=== PATIENT | male | born 1945 | race Caucasian/White ===

== ENCOUNTER 2021-05-02 10:07 | Emergency (ER) | payer MEDICARE, BC, SELFPAY ==
[2021-05-02 10:20] VITALS: BP 123/69; PULSE 53; RESP 16; TEMP 36.4; O2SAT 99
[2021-05-02 10:22] VITALS: BP 123/69; PULSE 53; RESP 16; TEMP 36.4; O2SAT 99
--- NOTE | 2021-05-02 10:39 | ED.WOUNDLAC ---
HPI - Wound/Laceration General Chief Complaint: Wound/Laceration Stated Complaint: lt hand middle finger laceration Time Seen by Provider: 05/02/21 10:23 Source: patient and RN notes reviewed Mode of arrival: ambulatory Limitations: no limitations History of Present Illness HPI narrative: Patient presents today complaining of a laceration to his left 3rd finger that was sustained yesterday by a pocket knife. He seeks treatment today because he cannot get the laceration to stop bleeding. He has tried pressure, pressure dressings, and hemostatic powder without relief. Denies numbness or tingling. Currently rates his pain 06/28. Patient takes Plavix and aspirin. Related Data Home Medications Medication Instructions Recorded Confirmed clopidogrel 75 mg tablet 75 mg PO DAILY 03/29/19 01/08/21 isosorbide mononitrate 30 mg 30 mg PO DAILY 03/29/19 01/08/21 tablet,extended release 24 hr amlodipine 2.5 mg tablet 2.5 mg PO DAILY 07/27/20 01/08/21 aspirin 81 mg tablet,delayed 81 mg PO DAILY 07/27/20 01/08/21 release atenolol 25 mg tablet 25 mg PO DAILY 07/27/20 01/08/21 atorvastatin 20 mg tablet 20 mg PO DAILY 07/27/20 01/08/21 Allergies Allergy/AdvReac Type Severity Reaction Status Date / Time iodine Allergy Unknown Skin Verified 01/08/21 11:03 Reaction latex Allergy Unknown UNKNOWN Verified 01/08/21 11:03 TAPE Allergy Mild RED RASH Uncoded 01/08/21 11:03 Contrast Media Allergy Unknown RASH Uncoded 01/08/21 11:03 Review of Systems Review of Systems: CONSTITUTIONAL: Denies body aches, fever, chills, or sweats. EYES: Denies visual changes, redness, or discharge. ENT: Denies rhinorrhea, congestion, sore throat, or otalgia. CARDIOVASCULAR: Denies chest pain, palpitations, or edema. RESPIRATORY: Denies cough or dyspnea. GASTROINTESTINAL: Denies abdominal pain, nausea, vomiting, or diarrhea. GENITOURINARY: Denies dysuria or hematuria. SKIN: Denies rash, itching. + Laceration to left 3rd finger MUSCULOSKELETAL: Denies back pain, joint pain, or myalgia. NEUROLOGIC: Denies headache, numbness, tingling, or weakness. PSYCH: Denies depression or anxiety. [facility] Past Medical History Medical History Atherosclerotic heart disease of [place] coronary artery with other forms of angina pectoris Se Dr Shahid Figueroa at [facility] 3-20 cardiac cath arteries ok Essential (primary) hypertension Obstructive sleep apnea (adult) (pediatric) Surgical History Surgical History H/O endovascular stent graft for abdominal aortic aneurysm 3-21 History of carotid endarterectomy 2-21 History of hip replacement History of quadruple bypass Hx of arthroscopy of knee Status post double vessel coronary artery bypass Family History Family History Father Family history of Parkinson's disease Other Family history of cardiovascular disease Social History Social History Alcohol intake: current Comments At time of signature, I have reviewed and agree with nursing past medical, surgical, social and family history unless otherwise noted. Please see nursing chart for further information. There is no relevant family history pertinent to the presenting complaint Exam Narrative: GENERAL: Well-appearing, well-nourished, and in no acute distress. HEAD: Normocephalic, atraumatic. EYES: EOMI. No redness or drainage. Conjunctivae normal. ENT: Mucous membranes pink and moist. NECK: Normal AROM. CHEST: No respiratory distress. EXTREMITIES: Normal range of motion. No edema. SKIN: Warm, dry, no rash. Capillary refill normal. Normal skin turgor. Approximately 2 cm partial-thickness linear laceration to the dorsum of the left 3rd PIP. Pressure dressing removed. No active bleeding present. Distal sensation intact. Capill
== END 2021-05-02 10:50 | disposition home or self-care (01) ==
PROVIDERS: Emergency Provider Nurse Practitioner; PCP Family Medicine
DX: S61.213A Laceration without foreign body of left middle finger without damage to nail, initial encounter (principal); I25.10 Atherosclerotic heart disease of native coronary artery without angina pectoris; I10 Essential (primary) hypertension; Z79.01 Long term (current) use of anticoagulants; Z79.82 Long term (current) use of aspirin; W26.0XXA Contact with knife, initial encounter
CPT/HCPCS: 29130; 99212; G0463

== ENCOUNTER 2021-07-09 10:47 | Outpatient (CLI) | payer MEDICARE, BC, SELFPAY ==
--- NOTE | ~2021-07-09 | XR_ITS ---
XR knee RT min 4V 07/09/2021 11:24 Indication: Right knee pain, chronic Procedure: 4 views right knee Comparison: No prior studies for comparison. Findings: There is severe tricompartment osteoarthritis of the right knee with remodeling of the late ral tibial plateau. No acute fracture or traumatic malalignment. No significant joint effusion. There are extensive vascular calcifications. Impression: 1: Severe tricompartment osteoarthritis of the right knee. Reviewed, dictated and finalized at location B. GAGE LOAN ORIGINATOR Impression: 1: Severe tricompartment osteoarthritis of the right knee.
--- NOTE | ~2021-07-09 | XR_ITS ---
XR shoulder RT min 2V 07/09/2021 11:24 Indication: Right shoulder pain Procedure: 5 views right shoulder Comparison: No prior studies for comparison. Findings: There is mild polyarticular osteoarthritis of the right shoulder. No fracture, subluxation or dislocation. Surrounding osseous structures and soft tissues are unremarkable. There are median st ernotomy wires. Impression: 1: Mild polyarticular osteoarthritis. Reviewed, dictated and finalized at location B. STERED PUBLIC SURVEYOR Impression: 1: Mild polyarticular osteoarthritis.
== END 2021-07-09 10:48 | disposition home or self-care (01) ==
LOC: ANHIMG 10:56
PROVIDERS: PCP Family Medicine; Visit Provider Family Medicine
DX: M17.11 Unilateral primary osteoarthritis, right knee (principal)
CPT/HCPCS: 73030; 73564

== ENCOUNTER → 2022-01-26 09:45 | Outpatient (CLI) | payer MEDICARE, BC, SELFPAY ==
--- NOTE | ~2022-01-26 | MR_ITS ---
EXAMINATION: MR shoulder RT wo con DATE: 01/26/2022 11:03 INDICATION: Anterolateral right shoulder pain TECHNIQUE: Magnetic resonance imaging (MRI) of the right shoulder was performed without intravenous c ontrast. Sequences included axial PD-weighted FS FSE, coronal oblique PD-weighted FS FSE, coronal obl ique T2-weighted FS FSE, sagittal PD-weighted FS FSE, and sagittal T1-weighted SE. COMPARISON: None. FINDINGS: Coracoacromial arch: The acromion undersurface is curved in morphology (type II). The coracoacromial ligament is normal. M oderate acromioclavicular osteoarthritis. Rotator cuff: Moderate supraspinatus and infraspinatus tendinopathy. There is a tear extending 3 cm AP along the moreno perior and middle facet footplates of the tendons. The anterior two thirds of the tendon along the moreno perior facet footplate of the supraspinatus tendon appears full-thickness with small portion of the a rticular side of the infraspinatus tendon remaining intact at the posterior third of the tear. The moreno praspinatus tear margin is retracted approximately 2 cm medially to the level of the lateral margin o f the acromion. There is attenuation of the lateral 2 cm the medially retracted supraspinatus tear ma rgin with greater degree of retraction of the articular side of the tendon. Mild subscapularis tendin opathy with complete tear of the cephalad two thirds of the lesser tuberosity footplate. The more cau alhaji muscular attachment of the subscapularis as well as the bursal side of the tendon remains intact and contiguous with the transverse humeral ligament. The teres minor tendon is normal. There is assoc iated atrophy of the supraspinatus tendon with slight concavity to its cephalad margin at the level o f the supraspinatus fossa and with mild fatty infiltration of the subscapularis muscle belly. Biceps tendon, glenoid labrum and glenohumeral cartilage: Complete tear of the long head biceps tendon with retraction of the attenuated and frayed distal tear margin to below the level of the intertubercular groove. There is a small slip of the tendon remaini ng at the intertubercular groove which does not appear to extend to the glenoid anchor likely represe nts an accessory head with insertion along the joint capsule. There is a tear of the superior to post erior superior glenoid labrum as well as of the inferior to posterior inferior labrum. Small marginal osteophytes along the posterior rim of the glenoid replacing portions of the posterior labrum. Mild partial-thickness cartilage loss with smooth chondral surface along the apical and inferomedial aspec t of the humeral head. Fluid: Small glenohumeral joint effusion with proportional extension of fluid into the long head biceps tend on sheath as well as communicating through the full-thickness rotator cuff tear with a small amount o f fluid in the subacromial subdeltoid bursa. No loose osteochondral bodies. Bones: Normal marrow signal with no edema, fracture or abnormal marrow replacing process. IMPRESSION: 1. Large rotator cuff tear involving the cephalad two thirds of the lesser tuberosity footplate of th e subscapularis tendon, the full-thickness of the superior facet footplate of the supraspinatus tendo n and approximately two thirds thickness of the articular side of the anterior half of the infraspina tus tendon. 2. Glenohumeral osteoarthritis with tears of the superior to posterosuperior and inferior to posterio r inferior labrum. 3. Full-thickness tear and distal retraction of the long head biceps tendon with likely residual smal l intact accessory head which is not seen extending to the glenoid anchor likely splinting with the c apsule at the cephalad aspect of the intertubercular groove. Reviewed, dictated and finalized at location A. Electronically signed by Sincere Tee M.D. on
== END ==
PROVIDERS: PCP Emergency Medicine; Visit Provider Orthopaedic Surgery
DX: M19.011 Primary osteoarthritis, right shoulder (principal); S46.111A Strain of muscle, fascia and tendon of long head of biceps, right arm, initial encounter; X58.XXXA Exposure to other specified factors, initial encounter
CPT/HCPCS: 73221

== ENCOUNTER → 2022-07-02 14:08 | Outpatient (CLI) | payer MEDICARE, BC, SELFPAY ==
--- NOTE | ~2022-07-02 | MR_ITS ---
EXAMINATION: MR knee LT wo con DATE: 07/02/2022 14:52 INDICATION: Quadriceps tear. Left knee pain. TECHNIQUE: Magnetic resonance imaging (MRI) of the left knee was performed without intravenous contra st. Sequences included axial PD-weighted FS FSE, coronal PD-weighted FSE and PD-weighted FS FSE, sagi ttal PD-weighted FSE, and sagittal T2-weighted FS FSE. COMPARISON: Left knee radiographs 06/27/2022 FINDINGS: Medial compartment: There is maceration of the medial meniscus. There is full-thickness cartilage loss of tibial condyle involving the medial articular surface with cortical remodeling. There is full-thickness cartilage lo ss of femoral condyle involving the medial articular surface with cortical remodeling. There are also areas of partial thickness cartilage loss of femoral condyle and tibial condyle. Osteophytes are not ed. Lateral compartment: There is an undersurface horizontal tear of anterior horn and body of lateral meniscus. There is deep partial-thickness cartilage loss of tibial condyle involving the posteromedial articular surface. Th ere is cartilage surface irregularity of femoral condyle. Osteophytes are noted. Patellofemoral compartment: There is shallow partial-thickness cartilage loss of patellar medial facet, median ridge, and lateral facet. There is shallow partial-thickness cartilage loss of medial, central, and lateral trochlea. O steophytes are noted. Ligaments and tendons: The anterior and posterior cruciate ligaments are normal. There are changes of prior sprains of media l collateral ligament and fibular collateral ligament characterized by thickening and increased signa l intensity proximally. There is mild patellar tendinopathy. There is a partial tear of quadriceps te ndon measuring 3.7 cm proximal to distal. Fluid: There is a moderate-sized knee joint effusion. There is a small Garcia's cyst. There is subcutaneous e isabelle about the knee. IMPRESSION: 1. Partial tear of quadriceps tendon measuring 3.7 cm proximal to distal. 2. Severe chondrosis of medial compartment, moderate chondrosis of lateral compartment, and mild kelvin drosis of patellofemoral compartment. 3. Tears of medial and lateral menisci. 4. Moderate-sized knee joint effusion. 5. Small Garcia's cyst. Reviewed, dictated and finalized at location A. SH REPAIRER IMPRESSION: 1. Partial tear of quadriceps tendon measuring 3.7 cm proximal to distal. 2. Severe chondrosis of medial compartment, moderate chondrosis of lateral comp artment, and mild chondrosis of patellofemoral compartment. 3. Tears of medial and lateral menisci. 4. Moderate-sized knee joint effusion. 5. Small Garcia's cyst.
== END ==
PROVIDERS: PCP Emergency Medicine; Visit Provider Orthopaedic Surgery
DX: S76.112A Strain of left quadriceps muscle, fascia and tendon, initial encounter (principal); M71.22 Synovial cyst of popliteal space [Baker], left knee; S83.282A Other tear of lateral meniscus, current injury, left knee, initial encounter; S83.242A Other tear of medial meniscus, current injury, left knee, initial encounter; X58.XXXA Exposure to other specified factors, initial encounter
CPT/HCPCS: 73721

== ENCOUNTER 2022-07-19 00:44 | Day surgery (SDC) | payer MEDICARE, BC, SELFPAY ==
--- NOTE | 2022-07-15 14:10 | PC.NURSE ---
Report to the Outpatient Waiting Room, entrance under the green pavilion located off [facility], at time _0600 on date __07/19/22 . Planned Procedure Time: ___0730 . Time changes happen often and if your time is changed the preop area will call you the afternoon before. - You and your visitor will be asked to self-screen and do not enter if you have any COVID symptoms. - Only one visitor is requested with a max of two and NO children visitors are allowed at this time. - The patient visitor may be requested to leave or wait in car when not with patient due to distancing restrictions. - A mask is optional within the hospital at this time. Patients may have clear liquids (water, carbonated beverages, clear teas, apple juice) until 3 hours prior to surgery with a maximum of 20 ounces. - No food from midnight until time of surgery - Infants may have breast milk until 4 hours before surgery, formula 6 hours prior to surgery. - Children will be allowed to drink immediately following surgery. If applicable, please bring a bottle or sippy cup to assist with drinking. Juice, water, soda, and popsicles are readily available. For infants on formula, please bring formula the day of surgery. Pacifiers are allowed. Take the following medications with a SIP of water the morning of surgery: ___ATENOLOL,ISOSORBIDE,LEVOTHYROXINE DO NOT STOP ANY OF YOUR OTHER PRESCRIPTION MEDICATIONS PRIOR TO SURGERY ?EXCEPT THE FOLLOWING Medications to discontinue per physician __ALL VITAMINS/SUPPLEMENTS 3 DAYS PRE OP .LAST DOSE 07/15/22___ASPIRIN.LAST DOSE 07/15/[address] COKER'S OFFICE AWARE Please no make-up, nail wallisian, hairspray, perfume, deodorant, or body powder the day of surgery. No jewelry (including any body piercings) or valuables the day of surgery, leave them at home. Please take a shower or bath the night before, or the morning of, surgery with an antibacterial soap. Wear comfortable, loose fitting clothing. Children are encouraged to wear pajamas. - Jewelry must be removed prior to entering the operating room. Rings and piercings that are not removed may be cut off. - The hospital will not accept responsibility for valuables. - Please leave all valuables, including medications, at home the day of surgery. If you are going home after surgery, a licensed backhaul driver must drive you home. - NO public transportation without another adult if you receive anesthesia. - We recommend that an adult stay with you for 24 hours following discharge. - We also recommend that you do not drive, make important decision, drink alcoholic beverages, or take any drugs that were not prescribed by your health care provider for at least 24 hours after your discharge time. For Pediatric surgeries, we recommend two adults accompany the child home. Follow any additional instructions given to you from your surgeon. If you or anyone in your household have experienced Covid symptoms in the past week, please notify your surgeon or the nurse liaison at the phone number below for possible testing. Telephone instructions given to ___PATIENT and asked if any additional questions and then verbalized understanding. Patient advised to call surgeon office or pre surgery nurse liaison [phone] if any additional questions.
[2022-07-15 14:17] VITALS: BMI 29.8
[2022-07-19] VITALS (8 sets, daily range): BP systolic 121–146; BP diastolic 57–95; PULSE 53–60; RESP 12–16; TEMP 36.1–36.2; O2SAT 91–99
--- NOTE | 2022-07-19 05:49 | ECG_ITS ---
Measurements Intervals [place] Rate: 53 P: 4 VA: 167 QRS: 22 QRSD: 104 T: -22 QT: 429 QTc: 406 Interpretive Statements SINUS BRADYCARDIA BORDERLINE ST-T WAVE ABNORMALITY- INFERIOR LEADS BORDERLINE ECG NO PREVIOUS ECG AVAILABLE FOR COMPARISON Electronically Signed On 07-19-2022 7:38:05 BUTTON PUSHER by Javier Abraham D.O.
[2022-07-19] MEDS: ACETAMINOPHEN 500 MG TABLET 1000 MG PO (06:34)
[2022-07-19] MEDS: LACTATED RINGERS 1,000 ML 30 ML IV CONT ×2 (06:39→09:13)
[2022-07-19] MEDS: KETOROLAC 15 MG/ML VIAL (*BKC) IV PUSH (06:57)
--- NOTE | 2022-07-19 07:08 | WPDANESEPPF ---
Anes - Initial Pre Proc Eval Procedure: Operation Date: 07/19/22 07:30 Proposed Procedures p Left Quadriceps Tendon Repair - George Tolliver MD Date/Time: 07/19/22 07:08 Surgeon: George Tolliver MD Pre Op Diagnosis: Left Quadricep Tendon Rupture Patient Data Age: 76 Gender: M Height: 1.83 m Weight: 99.8 kg Allergies Allergy/AdvReac Type Severity Reaction Status Date / Time iodine Allergy Unknown Skin Verified 07/19/22 06:16 Reaction latex Allergy Unknown Rash Verified 07/19/22 06:16 TAPE Allergy Mild RED RASH Uncoded 07/19/22 06:16 Contrast Media Allergy Unknown RASH Uncoded 07/19/22 06:16 Home Medications Medication Instructions Recorded Confirmed Type isosorbide mononitrate 30 mg 30 mg PO DAILY 03/29/19 07/19/22 History tablet,extended release 24 hr aspirin 81 mg tablet,delayed 81 mg PO DAILY 07/27/20 07/19/22 History release atenolol 25 mg tablet 25 mg PO DAILY 07/27/20 07/19/22 History atorvastatin 20 mg tablet 20 mg PO DAILY 07/27/20 07/19/22 History levothyroxine 75 mcg tablet See Rx Instructions .Route 12/20/21 07/19/22 Rx .COMPLEX #90 tabs cholecalciferol (vitamin D3) 25 25 mcg PO DAILY 05/02/22 07/19/22 History mcg (1,000 unit) tablet (Vitamin D3) mecobalamin (vitamin B12) 1,000 1,000 mcg sublingual DAILY 05/02/22 07/19/22 History mcg disintegrating tablet,sublingual losartan 50 mg tablet 50 mg PO DAILY 07/08/22 07/19/22 History hydrocodone 5 mg-acetaminophen 325 1 - 2 tablet PO Q8H PRN pain #30 07/10/22 07/19/22 Rx mg tablet tabs ascorbic acid (vitamin C) 1,000 mg 1 g PO DAILY 07/15/22 07/19/22 History tablet magnesium 250 mg tablet 250 mg PO BID 07/15/22 07/19/22 History multivitamin 1 tablet PO DAILY 07/15/22 07/19/22 History omega-3 fatty acids 1,000 mg PO DAILY 07/15/22 07/19/22 History Patient hx anesthesia problems: none Family hx anesthesia problems: none Results Review: All pre-operative results and documents have been reviewed as part of the pre-operative evaluation. [facility] Past Medical History Medical History Atherosclerotic heart disease of [place] coronary artery with other forms of angina pectoris Se Dr Shahid Figueroa at [facility] 3-20 cardiac cath arteries ok Essential (primary) hypertension Obstructive sleep apnea (adult) (pediatric) uses cpap Old myocardial infarction Surgical History Surgical History H/O endovascular stent graft for abdominal aortic aneurysm 3-21 History of carotid endarterectomy 2-21 History of hip replacement History of quadruple bypass Hx of arthroscopy of knee Status post double vessel coronary artery bypass Family History Family History Father Family history of Parkinson's disease Other Family history of cardiovascular disease Social History Social History Smoking packs per day: 1 Smoking cigarettes per day: 20.0 Years smoked: 20 Smoking pack-years: 20.00 Smoking status: Former smoker Tobacco type: cigarettes Smoking end date: 05/19/99 Alcohol intake: current Drinks per week: 3 Alcohol use details: 2-3 drinks/ week Substance use: never Lack of Transportation: No Lack of Food: Never True Current Housing: I Have Housing Concerned About Future Housing: No Difficulty Paying Gas/Electric Bills: No Difficulty Paying for Meds: No Currently Unemployed: No Education: Associate Degree Difficulty w/ Childcare or Family Care: No Living arrangements: with family Spiritual care concerns: No Anes - Eval Final PreProcedure Day of Procedure 07/19/22 07:08 Patient weight: overweight Heart: regular rate and rhythm Lungs: decreased breath sounds Airway: Mallampati scale class II Neurological: alert and oriented Last oral int
--- NOTE | 2022-07-19 07:14 | WPDHPUPDATE1 ---
History and Physical Update Update Date/Time: 07/19/22 07:14 Proceed with repair of left quadriceps tendon rupture. History and Physical has been reviewed, including an updated exam of the patient. There are NO changes in the patient's condition. Risks, benefits, and alternatives have been discussed and questions answered. Patient agrees to proceed with procedure.
[2022-07-19] MEDS: ceFAZolin 2 GM/D5W 50 ML 2 GM/50 ML BAG IVPB (07:27)
[2022-07-19] MEDS: BUPIVACAINE/EPINEPHRINE 0.5% 10 ML VIAL 20 ML INFILTRATE (08:01)
[2022-07-19] MEDS: fentaNYL CITRATE INJ (*CRX) 100 MCG/2 ML VIAL 25 MCG IV PUSH ×4 (09:37→09:55)
--- NOTE | 2022-07-19 09:38 | SUR.PHASEI ---
0937: Simple mask removed.
[2022-07-19] MEDS: oxyCODONE HCL (*CRX) 5 MG TAB IR PO (10:20)
--- NOTE | 2022-07-19 10:29 | P.OP_ITS ---
Procedure Note - Detailed Date of Procedure 07/19/22 Pre-op Diagnosis Left Quadricep Tendon Rupture Post-op Diagnosis Same Procedure Performed Quadriceps tendon repair, left. Surgeon George Tolliver MD Anesthesia General Findings Complete rupture of the central tendon superficially. Deep rectus intact. Spli tting proximally along the musculotendinous retinacula medially and laterally. Repair with 3 bone tunnels and 4 suture limbs will then into the central tendon. Augmented with a suture anchor laterally and interrupted repair along retinacular splits which were proximal along the tendon interface with the vastus lateralis and vastus medialis. Tension in the repair occurred at 30?. Description of Procedure General anesthetic administered. Preoperative antibiotics given. The knee was prepped and draped in the usual sterile fashion. The limb was exsanguinated and the tourniquet inflated during the 1st portion of the procedure. Patella and quad tendon were exposed. Complete rupture of the central portion of the tendon was observed. Deep fibers and capsule remained intact. Splitting along length of the tendon proximally and some disruption in the muscle of the vastus medialis. The wound was irrigated and repair planned. Three bone tunnels were drilled in patella from proximal to distal. Krackow sutures with 2. FiberWire were woven into the main portion of the central tendon slip. The 4 limbs were then passed through the bone and tied distally. Anatomic repair accomplished. Some tension on the repair with flexion past 30. Repair was augmented laterally with a G2 my tag suture anchor and 2. Orthocord. Additional FiberWire and multiple Vicryl were placed along the split in the tendon proximally. The repair was quite sanchez. The wound was closed with interrupted 1. Vicryl suture followed by running 2-0 Stratafix and 3-0 Stratafix. Steri-Strips on the skin. Dressing placed. Limb wrapped with an Tyler bandage and a knee immobilizer applied. The patient was extubated and brought to the recovery room in stable condition. Estimated blood loss 20 mL. Implants Mitek G2 anchor. Multiple 2. FiberWire suture. Estimated Blood Loss 20 Pathology None sent Complications No immediate complications Condition Stable Disposition PACU [facility] Billing Surgery - Charge Forward: Surgery Billing
== END 2022-07-19 11:20 | disposition home or self-care (01) ==
PROVIDERS: PCP Emergency Medicine; Visit Provider Orthopaedic Surgery
PROC: (CPT 27385; principal; 2022-07-19 07:30)
DX: S76.112A Strain of left quadriceps muscle, fascia and tendon, initial encounter (principal); W10.9XXA Fall (on) (from) unspecified stairs and steps, initial encounter; I25.118 Atherosclerotic heart disease of native coronary artery with other forms of angina pectoris; I10 Essential (primary) hypertension; G47.33 Obstructive sleep apnea (adult) (pediatric); I25.2 Old myocardial infarction; Z95.1 Presence of aortocoronary bypass graft; Z87.891 Personal history of nicotine dependence; Z79.82 Long term (current) use of aspirin; Z79.891 Long term (current) use of opiate analgesic
CPT/HCPCS: 27385; 93005; A9270; C1713; J0690; J1100; J1885; J2405; J2704; J3010; J7120

== ENCOUNTER 2023-02-11 11:13 | Outpatient (CLI) | payer MEDICARE, BC, SELFPAY ==
[2023-02-11 19:13] LABS: Thyroid Stimulating Hormone 0.606 uIU/mL (0.465-4.680)
[2023-02-13 17:34] LABS: Prostate Specific Antigen 1.6 ng/mL (< OR = 4.0)
== END 2023-02-11 11:14 | disposition home or self-care (01) ==
PROVIDERS: PCP Emergency Medicine; Visit Provider Emergency Medicine
DX: E03.9 Hypothyroidism, unspecified (principal); Z12.5 Encounter for screening for malignant neoplasm of prostate
CPT/HCPCS: 36415; 84153; 84439; 84443; G0103

== ENCOUNTER 2023-02-14 11:02 | Outpatient (CLI) | payer MEDICARE, BC, SELFPAY | END 2023-02-14 11:03 | disposition home or self-care (01) | PROVIDERS: PCP Emergency Medicine; Visit Provider Emergency Medicine | DX: E03.9 Hypothyroidism, unspecified (principal) | CPT/HCPCS: 36415; 84439 ==

== ENCOUNTER 2024-06-28 11:07 | Outpatient (CLI) | payer MEDICARE, BC, SELFPAY ==
--- OUTSIDE RECORDS SUMMARY | 2024-06-28 12:04 | XMS_ITS | Clinical Summary ---
Author Organization [facility] Address [address] [place] [address] Care Team Providers Care Separator Operator [employer] Name Role Phone Kavin Thomas MD Primary Care Provider [phone] Manoj Humphrey MD Unavailable [phone] George Tolliver MD Unavailable [phone] Allergies Active Allergy Reactions Criticality Noted Date Comments Adhesive Tape-Silicones Rash Medium Iodinated Contrast Media Hives Medium 08/07/2015 Iodine Rash High 03/03/2017 Latex Rash Medium Medications omega 8-msf-tgz-fish oil (FISH OIL) 100-160-1,000 mg capsule 0 0 5 Active cyanocobalamin (vitamin B-12) 1,000 mcg tablet 1,000 mcg. 0 0 5 Active aspirin (ASPIR-81) 81 mg tablet 81 mg. 0 0 5 Active levothyroxine (SYNTHROID, LEVOTHROID) 75 mcg tablet 75 mcg. 0 0 5 Active cholecalciferol (VITAMIN D3) 1,000 unit capsule 0 0 5 Active magnesium oxide (MAG-OX) 415 mg (250 mg elemental) tablet Take 250 mg by mouth 2 (two) times a day 8 Active multivitamin tabletIndication s:Vitamin Deficiency Prevention,1/2 tab bid Take 1 tablet by mouth every morning 9 Active ascorbic acid (VITAMIN C) 1,000 mg tablet Take 1 tablet (1,000 mg total) by mouth 2 (two) times a day Active acetaminophen (TYLENOL) 500 mg tablet Take 1 tablet (500 mg total) by mouth every 6 (six) hours as needed for pain Active isosorbide mononitrate ER (IMDUR) 30 mg 24 hr tablet TAKE 1 TABLET(30 MG) BY MOUTH DAILY 90 tablet 3 4 Active atorvastatin (LIPITOR) 20 mg tablet TAKE 1 TABLET(20 MG) BY MOUTH DAILY 90 tablet 2 4 Active metoprolol XL (TOPROL-XL) 25 mg extended release tablet TAKE 1 TABLET(25 MG) BY MOUTH DAILY 90 tablet 2 4 Active nitroglycerin (NITROSTAT) 0.[address] 1 tablet (0.4 mg total) under the tongue every 5 (five) minutes as needed for chest pain 25 tablet 4 4 Active dapagliflozin propanediol (FARXIGA) 10 mg tabletIndication s:Heart Failure Take 1 tablet (10 mg total) by mouth daily 90 tablet 3 5 05/20/19 26 Active sacubitriL-valsa rtan (ENTRESTO) 49-51 mg tabletIndication s:chronic heart failure Take 1 tablet by mouth 2 (two) times a day 60 tablet 11 5 06/11/19 26 Active sacubitriL-valsa rtan (ENTRESTO) 49-51 mg tabletIndication s:chronic heart failure Take 1 tablet by mouth 2 (two) times a day 5 06/11/19 25 Discontinu ed(Reorder ) Active Problems Problem Noted Date Diagnosed Date Hypothyroidism 07/18/2020 Assessment & Plan (07/18/2020 12:18 PM PRENATAL TEACHER): -Continue home levothyroxine Allergy to iodinated contrast 07/18/2020 Assessment & Plan (07/18/2020 1:39 PM PRENATAL TEACHER): -premedicated with benadryl and prednisone -CTM closely for hives, rash, hypotension, SOB Hypertension 07/04/2020 Assessment & Plan (07/18/2020 12:17 PM PRENATAL TEACHER): -Resume home HTN meds as appropriate after surgery Assessment & Plan (07/04/2020 2:22 PM PRENATAL TEACHER): - OU - On imdur, norvasc and atenolol at home, resume when able. Abdominal aortic aneurysm (AAA) without rupture 06/23/2020 Assessment & Plan (07/18/2020 6:15 PM PRENATAL TEACHER): - 7.8cm Infrarenal AAA. To OR 07/18 for EVAR - Continue ASA/Plavix - Normotensive BP goals (<160 >90) - Flat for 6 hours - q2h nv checks - OU status - Bedrest tonight - Lamb out at midnight - Ok for clears tonight Assessment & Plan (07/04/2020 2:14 PM PRENATAL TEACHER): - CT shows 7.8 cm infrarenal aortic aneurysm, patient to return at later date for endovascular repair - BP control Asymptomatic bilateral carotid artery stenosis 1 06/03/2019 Assessment & Plan (07/04/2020 2:13 PM PRENATAL TEACHER): - s/p left carotid endarterectomy 07/04 - Clear liquid diet - OU - SBP goal 110-160 - Pain control - DC Lamb in am - Q2 hr Neuromuscular checks Persistent disorder of initiating or maintaining sleep 12/20/2019 Chronic pain syndrome 12/20/2019 Arteriosclerotic vascular disease 04/29/2017 Assessment & Plan (02/06/2018 4:28 PM CDT): Can be exacerbated by untreated sleep apnea. He should strive uses APAP nightly for 7-8 hours. 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 He will wear his APAP set from 12-20 cm water pressure nightly and try to increase his sleep time to 7-8 hours. Surgical follow-up care 08/21/2012 Edema 12/31/2010 Pain of lower extremity 12/31/2010 Obstructive sleep apnea syndrome 10/01/2010 Overview (08/29/2017): Description: Obstructive Sleep Apnea Assessment & Plan (02/05/2019 3:04 PM CDT): He was refit and given an Airfit N 30 medium nasal mask. He will wear his APAP set from 12-20 cm water pressure nightly and try to increase his sleep time to 7-8 hours. Assessment & Plan (02/06/2018 4:28 PM CDT): He will put his mask on when he 1st gets into bed. He will try to increase his sleep time with his APAP to 7-8 hours nightly. He will have his APAP pressures adjusted to 12-20 cm of water pressure. Assessment & Plan (02/07/2017 4:25 PM CDT): He will wear his APAP nightly for 7-9 hours. He will get a new nasal mask. Hypercholesterolemia 10/01/2010 Overview (08/29/2017): Description: Hypercholesterolemia Atherosclerosis of coronary artery 10/01/2010 Overview (08/29/2017): Description: Coronary Artery Disease Resolved Problems Problem Noted Date Diagnosed Date Resolved Date Obesity with body mass index 30 or greater 11/29/2013 02/06/2018 Encounters Date Type Department Care Team Description 06/11/2024 11:45 AM PRENATAL TEACHER Lab [facility] Outpatient Lab at [address] [address] Hypertension (Primary Dx) 06/11/2024 11:40 AM PRENATAL TEACHER - 06/11/2024 11:59 PM PRENATAL TEACHER Hospital Encounter [address] [address] HFrEF (heart failure with reduced ejection fraction) (CMS/HCC) ([facility]) Discharge Disposition: Discharge to home or self care 06/03/2024 11:18 AM PRENATAL TEACHER - 06/03/2024 11:59 PM PRENATAL TEACHER Hospital Encounter [address] [address] HFrEF (heart failure with reduced ejection fraction) (CMS/HCC) ([facility]) Discharge Disposition: Discharge to home or self care 06/03/2024 11:15 AM PRENATAL TEACHER Lab [facility] Outpatient Lab at [address] [address] Hypertension (Primary Dx); Hypothyroidism 05/25/2024 11:45 AM PRENATAL TEACHER Office Visit [facility] [address] [place] [address] Medical Office Building [address] [place] [address] Jose Miguel Curry MD Primary hypertension (Primary Dx); HFrEF (heart failure with reduced ejection fraction) (CMS/HCC) ([facility]); Mixed hyperlipidemia; Coronary artery disease involving [place] coronary artery of [place] heart without angina pectoris 05/25/2024 Telephone [facility] Advanced Medicine 8th [place] [address] [place] [address] Jose Miguel Curry MD 05/03/2024 Telephone [facility] [place] Medicine 8th [place] [address] [place] [address] Jose Miguel Curry MD from Last 3 Months Surgical History Surgery Date Site/Laterality Comments APPENDECTOMY appendectomy CORONARY STENT PLACEMENT coronary stent HIP SURGERY hip surgery OTHER SURGICAL HISTORY cardiac bypass CARDIAC CATHETERIZATION ANGIOPLASTY JOINT REPLACEMENT Hip replacement CORONARY ARTERY BYPASS GRAFT 1988. 2006 CATARACT EXTRACTION 2019 Medical History Medical History Date Comments Chronic coronary artery disease Coronary artery disease Hypertension Hypertension Adiposity Obesity Hx Other Medical Hyperlipidemia; Comments: MPMoshe 01/20/2015 - Hx Other Medical knee surgery; C omments: MPB 01/20/2015 - Thyroid disease Hyperlipidemia Heart disease By Pass & Stents Beg an in 1988 Kidney stone 15 years ago Asymptomatic bilateral carot id artery stenosis 04/03/2020 GWEN on CPAP 2005 Carotid stenosis, bilateral Cataract 2019 Family History Medical History Relation Name Comments Alcohol abuse Brother 1 Yuan Oleary Sleep apnea Brother 1 Yuan Oleary Sleep apnea; Alcohol abuse Brother 2 Pilo Oleary Memory loss Father Pilo Oleary Parkinsonmoise Kidney disease Mother Viviane Oleary Stroke Mother Viviane Oleary Abdominal Aortic Aneurysm Neg Hx Anesthesia problems Neg Hx Relation Name Status Comments Brother 1 Yuan Oleary Brother 2 Pilo Oleary Father Pilo Oleary Parkinsons Mother Viviane Oleary Social History Tobacco Use Types Packs/Day Years Used Date Smoking Tobacco: Former Cigarettes 2 25 1 975 - 05/19/2019 Smokeless Tobacco: Never Tobacco Cessation:Counseling Given: Not Answered Alcohol Use Standard Drinks/Week Comments Yes 0 (1 standard drink = 0.6 oz pur e alcohol) 2 or 3 beers a week Personal Safety Answer Date Recorded Getting School Help Needed Denies 05/04 Sex and Gender Information Value Date Recorded Sex Assigned at Not on file Legal Sex Male 11:51 AM PRENATAL TEACHER Gender Identity Male 09/03/2019 10:45 AM CDT Sexual Orientation Straight 10/01/2018 11 :21 AM CDT Obstetrics History Last Filed Vital Signs Vital Sign Reading Time Taken Comments Blood Pressure 120/73 05/25/2024 10:56 AM PRENATAL TEACHER Pulse 61 05/25/2024 10:56 AM PRENATAL TEACHER Temperature 36.2 C (97.1 F) 09/19/2023 10:28 AM CDT Respiratory Rate 12 09/19/2023 10:2 8 AM CDT Oxygen Saturation 98% 05/25/2024 10: 56 AM PRENATAL TEACHER Inhaled Oxygen Concentration - - Weight 103.1 kg (227 lb 3.2 oz) 025 10:56 AM PRENATAL TEACHER Height 182.9 cm (6') 05/25/2024 10:56 AM PRENATAL TEACHER Body Mass Index 30.81 05/25/2024 10:56 AM PRENATAL TEACHER Plan of Treatment Health Maintenance Due Date Last Done Comments Depression Screening 1944 Hepatitis C Screening 1944 Pneumococcal vaccine 65+ (1 of 2 - PCV) 1950 Hepatitis B Screening 1962 Lung Cancer Screening 1994 Zoster Vaccine (1 of 2) 1994 Well Visit 65+ 2009 Fall Risk Assessment 07/19/2021 07/19/2020 DTaP/Tdap/Td Vaccine (2 - Td or Tdap) 07/09/2024 07/09/2014 Abdominal Aortic Aneurysm (A AA) Screen Completed 08/28/2023, 08/28/2023, 07/28/2023, Additional history exists Influenza Vaccine Completed 03/22/2024, , 02/02/2018 Medical Devices Implanted Type Area Carton Lettering Machine Operator Device Identifier Shelf Expiration Date Model / Serial / Lot [employer]ig [employer] [id number] Angio-Seal Evolution 6fr .035in Guidewire Bypass Tube Suture - [id number] Implanted:Qty: 1 on 07/29/2019 by Gus Austin MD at [facility] Collagen [employer] 02/16/2020 [id number] / / [id number] [employer] [id number] Peak Excluder C3 28.5mm 14.5mm 24-26mm 12-13.5mm 18cm Monroy Film - [id number] - [id number] Implanted:Qty: 1 on 07/18/2020 by Manoj Humphrey MD at [facility] Graft N/A: Aorta [employer] [id number] 03/18/2023 [id number] / [id number] / 0 [employer] [id number] Excluder 18mm 14.5-16.5mm 13.5cm Stent Abrasion Resistant - [id number] - [id number] Implanted:Qty: 1 on 07/18/2020 by Manoj Humphrey MD at [facility] Graft Right: Iliac [employer] [id number] 02/21/2023 [id number] / [id number] / 0 [facility] [employer] [id number] Vascu-Guard 8x.8cm Peripheral Patch Vascular Bovine Pericardium - S00 - [id number] Implanted:Qty: 1 on 07/04/2020 by Manoj Humphrey MD at [facility] Other - see comments Left: Neck [facility] [employer] 01/25/2025 [id number] / 00 / [id number] Description:Bovine pericardi al patch [employer] 74224-54 Perclose 6fr Suture Mediate Knot Push Vascular Device Closure - S0 - [id number] Implanted:Qty: 1 on 07/18/2020 by Manoj Humphrey MD at [facility] Other - see comments Right: Groin [employer] [id number] 04/17/2022 57891-99 / 0 / [id number] Description:Suture [employer] 08014-45 Perclose 6fr Suture Mediate Knot Push Vascular Device Closure - S0 - [id number] Implanted:Qty: 1 on 07/18/2020 by Manoj Humphrey MD at [facility] Other - see comments Right: Groin [employer] [id number] 04/17/2022 80840-40 / 0 / [id number] Description:Suture [employer] 82779-17 Perclose 6fr Suture Mediate Knot Push Vascular Device Closure - S0 - [id number] Implanted:Qty: 1 on 07/18/2020 by Manoj Humphrey MD at [facility] Other - see comments Right: Groin [employer] [id number] 04/17/2022 47881-97 / 0 [id number] Description:Suture [employer] 59987-31 Perclose 6fr Suture Mediate Knot Push Vascular Device Closure - S0 - [id number] Implanted:Qty: 1 on 07/18/2020 by Manoj Humphrey MD at [facility] Other - see comments Right: Groin [employer] [id number] 04/17/2022 19226-85 / 0 / [id number] Description:Suture [employer] 29308-55 Perclose 6fr Suture Mediate Knot Push Vascular Device Closure - S0 - [id number] Implanted:Qty: 1 on 07/18/2020 by Manoj Humphrey MD at [facility] Other - see comments Right: Groin [employer] [id number] 04/17/2022 52444-56 / 0 / [id number] Procedures Procedure Name Priority Date/Time Associated Diagnosis Comments EGFR Routine 06/11/2024 11:40 AM PRENATAL TEACHER HFrEF (heart failure with reduced ejection fraction) (CMS/HCC) ([facility]) BASIC METABOLIC PANEL Routine 06/11/2024 11:40 AM PRENATAL TEACHER HFrEF (heart failure with reduced ejection fraction) (CMS/HCC) (HCC) EGFR Routine 06/03/2024 11:18 AM PRENATAL TEACHER HFrEF (heart failure with reduced ejection fraction) (CMS/HCC) (HCC) BASIC METABOLIC PANEL Routine 06/03/2024 11:18 AM PRENATAL TEACHER HFrEF (heart failure with reduced ejection fraction) (CMS/HCC) (HCC) CTA ABDOMEN PELVIS W WO CONTRAST Schedule Routine, Read Routine (OP Routine) 07/28/2023 3:13 PM CDT Encounter for surgical aftercare following surgery on the circulatory system from Last 3 Months or Most Recently Relevant to Health Maintenance Results * eGFR (06/11/2024 11:40 AM PRENATAL TEACHER) eGFR 61 >=60 mL/min/1. 73 m2 Comment: Interpretive Data Reference Interval Normal >/= 90 mL/min/1.73m2 Mildly decreased* 60 - 89 mL/min/1.73m2 Mildly to moderately decreased 45 - 59 mL/min/1.73m2 Moderately to severely decreased 30 - 44 mL/min/1.73m2 Severely decreased 15 - 29 mL/min/1.73m2 Kidney Failure < 15 mL/min/1.73m2 *Relative to young adult level Estimated glomerular filtration rate is determined by the 2020 CKD-EPI equation recommended by the National Kidney Foundation (A Unifying Approach to GFR Estimation: Recommendations of the NKF-ASK Task Force on Reassessing the Inclusion of Race in Diagnosing Kidney Disease, JASN 202). The CKD-EPI equation should not be used for patients with unstable renal function and has not been validated in children and those over 70. Current interpretive data was last reviewed 2021. Blood 06/11/2024 11:4 0 AM PRENATAL TEACHER 06/11/2024 3:00 PM PRENATAL TEACHER us Jose Miguel Curry MD LAB BLOOD ORDERABLES Final Result [facility] [id number] [place] [place] [address] * Basic metabolic panel (06/11/2024 11:40 AM PRENATAL TEACHER) Sodium 139 135 - 145 mmol/L Potassium, pl 4.7 3.3 - 4.9 mmol/L [facility] Chloride 103 97 - 110 mmol/L [facility] CO2 27 22 - 32 mmol/L [facility] Anion gap 9 2 - 15 mmol/L [facility] BUN 21 6 - 25 mg/dL [facility] Creatinine 1.21 0.80 - 1.30 mg/dL [facility] Glucose 105 70 - 199 mg/dL [facility] Comment: Interpretive Data Fasting glucose >/= 126 mg/dl is diagnostic for diabetes. Fasting is defined as no caloric intake for at least 8 hours. Fasting glucose between 100 mg/dl to 125 mg/dl is diagnostic of prediabetes. In a patient with classic symptoms of hyperglycemia or hyperglycemic crisis, a random glucose >/= 200 mg/dl is diagnostic for diabetes. In the absence of unequivocal hyperglycemia, results should be confirmed by repeat testing. The classification and Diagnosis of Diabetes Diabetes Care 2021; 46: S19-S40. Current interpretive data was last revised 2022. Calcium 9.1 8.5 - 10.3 mg/dL [facility] Blood 06/11/2024 11:4 0 AM PRENATAL TEACHER 06/11/2024 2:51 PM PRENATAL TEACHER us Jose Miguel Curry MD LAB BLOOD ORDERABLES Final Result [facility] [address] [place] [address] * eGFR (06/03/2024 11:18 AM PRENATAL TEACHER) eGFR 60 >=60 mL/min/1. 73 m2 Comment: Interpretive Data Reference Interval Normal >/= 90 mL/min/1.73m2 Mildly decreased* 60 - 89 mL/min/1.73m2 Mildly to moderately decreased 45 - 59 mL/min/1.73m2 Moderately to severely decreased 30 - 44 mL/min/1.73m2 Severely decreased 15 - 29 mL/min/1.73m2 Kidney Failure < 15 mL/min/1.73m2 *Relative to young adult level Estimated glomerular filtration rate is determined by the 2020 CKD-EPI equation recommended by the National Kidney Foundation (A Unifying Approach to GFR Estimation: Recommendations of the NKF-ASK Task Force on Reassessing the Inclusion of Race in Diagnosing Kidney Disease, JASN 2020). The CKD-EPI equation should not be used for patients with unstable renal function and has not been validated in children and those over 70. Current interpretive data was last reviewed 2021. Blood 06/03/2024 11:1 8 AM PRENATAL TEACHER 06/03/2024 3:22 PM PRENATAL TEACHER us Jose Miguel Curry MD LAB BLOOD ORDERABLES Final Result [facility] [address] [address] [place] [address] * (ABNORMAL) Basic metabolic panel (06/03/2024 11:18 AM PRENATAL TEACHER) Sodium 142 135 - 145 mmol/L Potassium, pl 5.0(H) 3.3 - 4.9 mmol/L [facility] Chloride 105 97 - 110 mmol/L [facility] CO2 26 22 - 32 mmol/L [facility] Anion gap 11 2 - 15 mmol/L [facility] BUN 16 6 - 25 mg/dL [facility] Creatinine 1.23 0.80 - 1.30 mg/dL [facility] Glucose 100 70 - 199 mg/dL [facility] Comment: Interpretive Data Fasting glucose >/= 126 mg/dl is diagnostic for diabetes. Fasting is defined as no caloric intake for at least 8 hours. Fasting glucose between 100 mg/dl to 125 mg/dl is diagnostic of prediabetes. In a patient with classic symptoms of hyperglycemia or hyperglycemic crisis, a random glucose >/= 200 mg/dl is diagnostic for diabetes. In the absence of unequivocal hyperglycemia, results should be confirmed by repeat testing. The classification and Diagnosis of Diabetes Diabetes Care 202; 46: S19-S40. Current interpretive data was last revised 2022. Calcium 9.2 8.5 - 10.3 mg/dL [facility] Blood 06/03/2024 11:1 8 AM PRENATAL TEACHER 06/03/2024 3:20 PM PRENATAL TEACHER us Jose Miguel Curry MD LAB [place] [address] [address] [place] [address] * CTA Abdomen Pelvis (07/28/2023 3:13 PM CDT) Anatomical Region Laterality Modality Body N/A Computed Tomogra phy 07/29/2023 8:09 AM CDT Impressions 07/29/2023 12:02 PM CDT IMPRESSION: 1. 62 mm x 72 mm infrarenal abdominal aortic aneurysm with stent graft in place. There has been no interval change in the size of the aneurysm since the prior examination. 2. AAA volume: 235 cc. This is stable since the prior exam. 3. No evidence of stent migration. No evidence of endoleak. Dictated by: Rj Younegr MD The radiology attending physician has personally reviewed this study, and had reviewed and/or edited this written report and agrees with it. Electronically signed by: Rj Ta M.D. Narrative 07/29/2023 12:02 PM CDT EXAMINATION: CT ANGIOGRAPHY OF THE ABDOMEN AND PELVIS WITH AND WITHOUT CONTRAST HISTORY: History of abdominal aortic aneurysm repair, follow-up TECHNIQUE: CT angiography of the abdomen and pelvis was performed prior to and following the uneventful intravenous administration of 60 ml Optiray-350 using the post-endoluminal stent graft protocol. Vascular 3D images were generated on a dedicated workstation and also reviewed. COMPARISON: 05/27/2022 FINDINGS: VASCULAR FINDINGS: There is an infrarenal abdominal aortic aneurysm with an [id number] stent graft in place. The proximal attachment site is the infrarenal, and the distal attachment sites are in the distal bilateral common iliac arteries. There has been no migration of the graft since the last exam. There is no perigraft flow to suggest an endoleak. No visceral stents are present. 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 The superior mesenteric, bilateral renal, and inferior mesenteric arteries are patent. AAA volume (lowest renal artery to aortic bifurcation): 235 cc. This is stable since the prior exam. The maximum diameter of the aneurysm is 62 mm AP x 72 mm [id number]. This is stable since the prior exam. The maximum diameter of the graft is 28 mm AP x 26 mm [id number]. This is stable since the prior exam. NON-VASCULAR FINDINGS: Imaged lung bases show mild peripheral reticulation. No pleural effusion. Imaged heart size is normal with coronary artery calcifications. Periportal widening. Too small to characterize hypoattenuating right hemiliver lesion. No biliary ductal dilation.: C compressed. The spleen and pancreas are normal. Unchanged 2.2 cm right and 1.5 cm left adrenal gland nodules, likely representing adenomas. Left renal hilar cyst. No hydronephrosis. Urinary bladder is mildly distended. Prostate gland is present. Small fat-containing left inguinal hernia. No abdominal or pelvic lymphadenopathy. Small hiatal hernia. Fat-containing umbilical hernia. The stomach is normal. The small and large bowel are normal in caliber without evidence of obstruction. There is colonic diverticulosis without evidence of diverticulitis. No pneumoperitoneum or free intraperitoneal fluid. Right hip arthroplasty is present. No suspicious osseous lesion. Procedure Note Rj Ta MD - 07/29/2023 EXAMINATION: CT ANGIOGRAPHY OF THE ABDOMEN AND PELVIS WITH AND WITHOUT CONTRAST HISTORY: History of abdominal aortic aneurysm repair, follow-up TECHNIQUE: CT angiography of the abdomen and pelvis was performed prior to and following the uneventful intravenous administration of 60 ml Optiray-350 using the post-endoluminal stent graft protocol. Vascular 3D images were generated on a dedicated workstation and also reviewed. COMPARISON: 05/27/2022 FINDINGS: VASCULAR FINDINGS: There is an infrarenal abdominal aortic aneurysm with an iroxc-uf-pdygf stent graft in place. The proximal attachment site is the infrarenal, and the distal attachment sites are in the distal bilateral common iliac arteries. There has been no migration of the graft since the last exam. There is no perigraft flow to suggest an endoleak. No visceral stents are present. 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 The superior mesenteric, bilateral renal, and inferior mesenteric arteries are patent. AAA volume (lowest renal artery to aortic bifurcation): 235 cc. This is stable since the prior exam. The maximum diameter of the aneurysm is 62 mm AP x 72 mm [id number]. This is stable since the prior exam. The maximum diameter of the graft is 28 mm AP x 26 mm [id number]. This is stable since the prior exam. NON-VASCULAR FINDINGS: Imaged lung bases show mild peripheral reticulation. No pleural effusion. Imaged heart size is normal with coronary artery calcifications. Periportal widening. Too small to characterize hypoattenuating right hemiliver lesion. No biliary ductal dilation.: C compressed. The spleen and pancreas are normal. Unchanged 2.2 cm right and 1.5 cm left adrenal gland nodules, likely representing adenomas. Left renal hilar cyst. No hydronephrosis. Urinary bladder is mildly distended. Prostate gland is present. Small fat-containing left inguinal hernia. No abdominal or pelvic lymphadenopathy. Small hiatal hernia. Fat-containing umbilical hernia. The stomach is normal. The small and large bowel are normal in caliber without evidence of obstruction. There is colonic diverticulosis without evidence of diverticulitis. No pneumoperitoneum or free intraperitoneal fluid. Right hip arthroplasty is present. No suspicious osseous lesion. IMPRESSION: IMPRESSION: 1. 62 mm x 72 mm infrarenal abdominal aortic aneurysm with stent graft in place. There has been no interval change in the size of the aneurysm since the prior examination. 2. AAA volume: 235 cc. This is stable since the prior exam. 3. No evidence of stent migration. No evidence of endoleak. Dictated by: Rj Younger MD The radiology attending physician has personally reviewed this study, and had reviewed and/or edited this written report and agrees with it. Electronically signed by: Rj Ta M.D. Manoj Humphrey MD IMG CT PROCEDURES Final R esult from Last 3 Months or Most Recently Relevant to Health Maintenance Insurance MEDICARE [facility] FEDERAL MEDICARE [facility] FEDERAL MEDICARE [employer] 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
--- OUTSIDE RECORDS SUMMARY | 2024-06-28 12:04 | XMS_ITS | Clinical Summary ---
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 Gender Identity Not on file Sexual Orientation Not on file Plan of Treatment Health Maintenance Due Date Last Done Comments Hepatitis C Virus (HCV) Screening 1945 Pneumococcal Immunization (50+ years) (1 of 1 - PCV) 1994 Zoster Immunization (1 of 2) 1994 Respiratory Syncytial Virus (RSV) Immunization (Adult) (1 - 1-dose 75+ series) 10/13/2019 Influenza Immunization (#1) 2024 08/2 10/2018, 02/02/2018 SARS-COV-2 Immunization ( season) 2024 DTaP/Tdap/Td Immunization Discontinued 07/09/2014 TdaP Immunization Completed 07/09/2014 Hepatitis B Immunization Aged Out No longer eligible based on patient's age to complete this topic Meningococcal Immunization (ACWY) Aged Out No longer eligible based on patient's age to complete this topic Rotavirus Immunization Aged Out No lo nger eligible based on patient's age to complete this topic
--- OUTSIDE RECORDS SUMMARY | 2024-06-28 12:04 | XMS_ITS | Referral Summary ---
Author Organization [facility] Address [address] [place] [address] Care Team Providers Care Forming Roll Operator Name Role Phone Kavin Thomas MD Primary Care Provider Manoj Humphrey MD Unavailable George Tolliver MD Unavailable [phone] Encounters Date Type Department Care Team Description 06/11/2024 11:40 AM MANAGER MULTICULTURAL - 06/11/2024 11:59 PM MANAGER MULTICULTURAL Hospital Encounter [address] [address] HFrEF (heart failure with reduced ejection fraction) ([facility]/HCC) ([facility]) Discharge Disposition: Discharge to home or self care 06/11/2024 11:45 AM MANAGER MULTICULTURAL Lab [facility] Outpatient Lab at [address] [phone] Hypertension (Primary Dx) 06/03/2024 11:18 AM MANAGER MULTICULTURAL - 06/03/2024 11:59 PM MANAGER MULTICULTURAL Hospital Encounter [address] [address] HFrEF (heart failure with reduced ejection fraction) (CMS/HCC) ([facility]) Discharge Disposition: Discharge to home or self care 06/03/2024 11:15 AM MANAGER MULTICULTURAL Lab [facility] Outpatient Lab at [address] [phone] Hypertension (Primary Dx); Hypothyroidism 05/25/[address] [facility] [address] [place] [address] [place] [address] [place] [address] Jose Miguel Curry MD 05/25/2024 11:45 AM MANAGER MULTICULTURAL Office Visit [facility] Medical Office Building [address] [place] [address] Jose Miguel Curry MD Primary hypertension (Primary Dx); HFrEF (heart failure with reduced ejection fraction) (CMS/HCC) (HCC); Mixed hyperlipidemia; Coronary artery disease involving [place] coronary artery of [place] heart without angina pectoris 05/03/[address] [facility] [address] [facility] 8th [place] [address] [place] [phone] Jose Miguel Curry MD from Last 3 Months Allergies Active Allergy Reactions Criticality Noted Date Comments Adhesive Tape-Silicones Rash Medium Iodinated Contrast Media Hives Medium 08/07/2015 Iodine Rash High 03/03/2017 Latex Rash Medium Medications omega 5-ywd-wti-fish oil (FISH OIL) 100-160-1,000 mg capsule 0 [...] 07/18/2020 Assessment & Plan (07/18/2020 12:18 PM MANAGER MULTICULTURAL): -Continue home levothyroxine Allergy to iodinated contrast 07/18/2020 Assessment & Plan (07/18/2020 1:39 PM MANAGER MULTICULTURAL): -premedicated with benadryl and prednisone -CTM closely for hives, rash, hypotension, SOB Hypertension 07/04/2020 Assessment & Plan (07/18/2020 12:17 PM MANAGER MULTICULTURAL): -Resume home HTN meds as appropriate after surgery Assessment & Plan (07/04/2020 2:22 PM MANAGER MULTICULTURAL): - OU - On imdur, norvasc and atenolol at home, resume when able. Abdominal aortic aneurysm (AAA) without rupture 06/23/2020 Assessment & Plan (07/18/2020 6:15 PM MANAGER MULTICULTURAL): - 7.8cm Infrarenal AAA. To OR 07/18 for EVAR - Continue ASA/Plavix - Normotensive BP goals (<160 >90) - Flat for 6 hours - q2h nv checks - OU status - Bedrest tonight - Lamb out at midnight - Ok for clears tonight Assessment & Plan (07/04/2020 2:14 PM MANAGER MULTICULTURAL): - CT shows 7.8 cm infrarenal aortic aneurysm, patient to return at later date for endovascular repair - BP control Asymptomatic bilateral carotid artery stenosis 1 06/03/2019 Assessment & Plan (07/04/2020 2:13 PM MANAGER MULTICULTURAL): - s/p left carotid endarterectomy 07/04 - [...] mass index 30 or greater 11/29/2013 02/06/2018 Social History Tobacco Use Types Packs/Day Years [...] on file Legal Sex Male 11:51 AM MANAGER MULTICULTURAL Gender Identity Male 09/03/2019 10:45 AM CDT Sexual Orientation Straight 10/01/2018 11 :21 AM CDT Last Filed Vital Signs Vital Sign Reading Time Taken Comments Blood Pressure 120/73 05/25/2024 10:56 AM MANAGER MULTICULTURAL Pulse 61 05/25/2024 10:56 AM MANAGER MULTICULTURAL Temperature 36.2 C (97.1 F) 09/19/2023 10:28 AM CDT Respiratory Rate 12 09/19/2023 10:2 8 AM CDT Oxygen Saturation 98% 05/25/2024 10: 56 AM MANAGER MULTICULTURAL Inhaled Oxygen Concentration - - Weight 103.1 kg (227 lb 3.2 oz) 025 10:56 AM MANAGER MULTICULTURAL Height 182.9 cm (6') 05/25/2024 10:56 AM MANAGER MULTICULTURAL Body Mass Index 30.81 05/25/2024 10:56 AM MANAGER MULTICULTURAL Plan of Treatment Not on file Medical Devices Implanted Type Area Vehicle Return Associate Device Identifier Shelf Expiration Date Model / Serial / Lot [employer]ig [employer] [id number] Angio-Seal Evolution 6fr .035in Guidewire Bypass Tube Suture - [id number] Implanted:Qty: 1 on 07/29/2019 by Gus Austin MD at [facility] Collagen [employer] 02/16/2020 [id number] / / [id number] [employer] [id number] Guys Excluder C3 28.5mm 14.5mm 24-26mm 12-13.5mm 18cm Monroy Film - [id number] - [id number] Implanted:Qty: 1 on 07/18/2020 by Manoj Humphrey MD at [facility] Graft N/A: Aorta [employer] [id number] 03/18/2023 [id number] / [id number] / 0 [employer] [id number] Excluder 18mm 14.5-16.5mm 13.5cm Stent Abrasion Resistant - [id number] - [id number] Implanted:Qty: 1 on 07/18/2020 by Manoj Humphrey MD at [facility] Graft Right: Iliac [employer] [id number] 02/21/2023 [id number] / [id number] / 0 [employer] Sofia [id number] Vascu-Guard 8x.8cm Peripheral Patch Vascular Bovine Pericardium - S00 - [id number] Implanted:Qty: 1 on 07/04/2020 by Manoj Humphrey MD at [facility] Other - see comments Left: Neck [facility] 01/25/2025 [id number] / 00 / [id number]- [id number] Description:Bovine pericardi al patch [employer] 41329-83 Perclose 6fr Suture Mediate Knot Push Vascular Device Closure - S0 - [id number] Implanted:Qty: 1 on 07/18/2020 by Manoj Humphrey MD at [facility] Other - see comments Right: Groin [employer] [id number] 04/17/2022 [id number] / 0 / [id number] Description:Suture [employer] 47089-82 Perclose 6fr Suture Mediate Knot Push Vascular Device Closure - S0 - [id number] Implanted:Qty: 1 on 07/18/2020 by Mnaoj Humphrey MD at [facility] Other - see comments Right: Groin [employer] [id number] 04/17/2022 [id number] / 0 / [id number] Description:Suture [employer] 69562-45 Perclose 6fr Suture Mediate Knot Push Vascular Device Closure - S0 - [id number] Implanted:Qty: 1 on 07/18/2020 by Manoj Humphrey MD at [facility] Other - see comments Right: Groin [employer] [id number] 04/17/2022 43786-81 / 0 / [id number] Description:Suture [employer] 40880-04 Perclose 6fr Suture Mediate Knot Push Vascular Device Closure - S0 - [id number] Implanted:Qty: 1 on 07/18/2020 by Manoj Humphrey MD at [facility] Other - see comments Right: Groin [employer] [id number] 04/17/2022 60435-44 / 0 / [id number] Description:Suture [employer] 64279-61 Perclose 6fr Suture Mediate Knot Push Vascular Device Closure - S0 - [id number] Implanted:Qty: 1 on 07/18/2020 by Manoj Humphrey MD at [facility] Other - see comments Right: Groin [employer] [id number] 04/17/2022 21316-30 / 0 / [id number] Procedures Procedure Name Priority Date/Time Associated Diagnosis Comments EGFR Routine 06/11/2024 11:40 AM MANAGER MULTICULTURAL HFrEF (heart failure with reduced ejection fraction) (CMS/HCC) (HCC) BASIC METABOLIC PANEL Routine 06/11/2024 11:40 AM MANAGER MULTICULTURAL HFrEF (heart failure with reduced ejection fraction) (CMS/HCC) (HCC) EGFR Routine 06/03/2024 11:18 AM MANAGER MULTICULTURAL HFrEF (heart failure with reduced ejection fraction) (CMS/HCC) (HCC) BASIC METABOLIC PANEL Routine 06/03/2024 11:18 AM MANAGER MULTICULTURAL HFrEF (heart failure with reduced ejection fraction) (CMS/HCC) (HCC) CTA ABDOMEN PELVIS W WO CONTRAST Schedule Routine, Read Routine (OP Routine) 07/28/2023 3:13 PM CDT Encounter for surgical aftercare following surgery on the circulatory system from Last 3 Months or Most Recently Relevant to Health Maintenance Results * eGFR (06/11/2024 11:40 AM MANAGER MULTICULTURAL) eGFR 61 >=60 mL/min/1. 73 m2 Comment: [...] reviewed 2021. Blood 06/11/2024 11:4 0 AM MANAGER MULTICULTURAL 06/11/2024 3:00 PM MANAGER MULTICULTURAL Jose Miguel Curry MD LAB BLOOD ORDERABLES Final Result Performing Organization Address [facility] Co de Phone Number [facility] [address] Department [place] [place] [address] * Basic metabolic panel (06/11/2024 11:40 AM MANAGER MULTICULTURAL) Sodium 139 135 - 145 mmol/L Potassium, pl 4.7 3.3 - 4.9 mmol/L [facility] Chloride 103 97 - 110 mmol/L [facility] CO2 27 22 - 32 mmol/L [facility] Anion gap 9 2 - 15 mmol/L [facility] BUN 21 6 - 25 mg/dL [facility] Creatinine 1.21 0.80 - 1.30 mg/dL [facility] Glucose 105 70 - 199 mg/dL [facility] Comment: Interpretive Data Fasting glucose >/= 126 [...] 2022. Calcium 9.1 8.5 - 10.3 mg/dL [facility] Blood 06/11/2024 11:4 0 AM MANAGER MULTICULTURAL 06/11/2024 2:51 PM MANAGER MULTICULTURAL Jose Miguel Curry MD LAB BLOOD ORDERABLES Final Result Performing Organization Address City/[facility]/ZIP Co de Phone Number [facility] [address] [address] Department [place] [place] [address] * eGFR (06/03/2024 11:18 AM MANAGER MULTICULTURAL) eGFR 60 >=60 mL/min/1. 73 m2 Comment: [...] reviewed 2021. Blood 06/03/2024 11:1 8 AM MANAGER MULTICULTURAL 06/03/2024 3:22 PM MANAGER MULTICULTURAL us Jose Miguel Curry MD LAB BLOOD ORDERABLES Final Result [facility] [address] Department [place] [address] * (ABNORMAL) Basic metabolic panel (06/03/2024 11:18 AM MANAGER MULTICULTURAL) Pathologist [facility] Sodium 142 135 - 145 mmol/L Potassium, pl 5.0(H) 3.3 - 4.9 mmol/L [facility] Chloride 105 97 - 110 mmol/L [facility] CO2 26 22 - 32 mmol/L [facility] Anion gap 11 2 - 15 mmol/L [facility] BUN 16 6 - 25 mg/dL [facility] Creatinine 1.23 0.80 - 1.30 mg/dL [facility] Glucose 100 70 - 199 mg/dL [facility] Comment: Interpretive Data Fasting glucose >/= 126 [...] 2022. Calcium 9.2 8.5 - 10.3 mg/dL [facility] Blood 06/03/2024 11:1 8 AM MANAGER MULTICULTURAL 06/03/2024 3:20 PM MANAGER MULTICULTURAL us Jose Miguel Curry MD LAB BLOOD ORDERABLES Final Result [facility] [address] Department [place] [address] * CTA Abdomen Pelvis (07/28/2023 3:13 PM [...] an infrarenal abdominal aortic aneurysm with an [id number]-[id number] stent graft in place. The proximal attachment [...] is 62 mm AP x 72 mm okysl-kv-puje. This is stable since the prior exam. The maximum diameter of the graft is 28 mm AP x 26 mm skbis-ba-ljux. This is stable since the prior exam. [...] an infrarenal abdominal aortic aneurysm with an [id number]-ac-urwtf stent graft in place. The proximal attachment [...] is 62 mm AP x 72 mm bhjtq-yu-bkel. This is stable since the prior exam. The maximum diameter of the graft is 28 mm AP x 26 mm sweay-lx-uckt. This is stable since the prior exam. [...] Recently Relevant to Health Maintenance Insurance MEDICARE [facility] FEDERAL MEDICARE [facility] FEDERAL MEDICARE [facility] MEDICARE [facility] FEDERAL Advance Directives For more information, please contact: [phone] * Full Code (Latest Code Status on [...] Oleary Spouse Health Care Agent Care Teams Forming Roll Operator Relationship Specialty Start Date End Date Kavin Thomas MD PCP - General Family Medicine 05/27/22 Manoj Humphrey MD Surgeon Vascular Surgery 07/09/22 George Tolliver MD [address] [place] [address] Surgeon Orthopedic Surgery 07/09/22
--- OUTSIDE RECORDS SUMMARY | 2024-06-28 12:04 | XMS_ITS | Encounter Summary ---
Author Organization [facility] Address [address] [place] [address] Phone Care Team Providers Care Global Risk Management Director Name Role Phone Esther Fleming MD Primary Care Provider [phone] Manoj Humphrey MD Unavailable [phone] Kavin Thomas MD Primary Care Provider [phone] Manoj Humphrey MD Unavailable [phone] Osmin Wheeler MD Unavailable [phone] George Tolliver MD Unavailable [phone] Encounter Details Date Type Department Care Team (Latest Contact Info) Description 09/19/2017 Orders Only [facility] CONVERSION Scanning, Provider Social History Tobacco Use Types Packs/Day Years Used Date Smoking Tobacco: Former Alcohol Use Standard Drinks/Week Comments Yes 0 (1 standard drink = 0.6 oz pur e alcohol) Sex and Gender Information Value Date Recorded Sex Assigned at Not on file Legal 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 Gender Identity Male 09/03/2019 10:45 AM CDT Sexual Orientation Straight 10/01/2018 11 :21 AM CDT documented as of this encounter Plan of Treatment Not on file documented as of this encounter Procedures Procedure Name Priority Date/Time Associated Diagnosis Comments VASCULAR LABORATORY REPORT 09/19/2017 10:21 AM CDT documented in this encounter Results * VASCULAR LABORATORY REPORT (09/19/2017 10:21 AM CDT) Anatomical Region Laterality Modality Ultrasound us Provider Scanning CV VASCULAR PROCEDURES Final R esult documented in this encounter Visit Diagnoses Not on filedocumented in this encounter Additional Health Concerns Infection Onset Date Last Indicated Resolved Time COVID: Suspected 05/04/2023 05/04/2023 05/04/2023 2:33 PM EXAMINATION PROCTOR COVID: Suspected 05/04/2023 05/04/2023 05/04/2023 9:17 PM EXAMINATION PROCTOR Influenza, adult 05/04/2023 05/04/2023 05/11/2023 3:07 AM EXAMINATION PROCTOR documented as of this encounter Care Teams Global Risk Management Director Relationship Specialty Start Date End Date Esther Fleming MD [address] [place] [id number] PCP - General 09/26/16 05/26/22 Kavin Thomas MD [address] [place] [id number] PCP - General Family Medicine 05/27/22 Manoj Humphrey MD [address] [place] [id number] Consulting Physician Vascular Surgery 07/05/20 07/08/22 Manoj Humphrey MD [address] [place] [id number] Surgeon Vascular Surgery 07/09/22 Osmin Wheeler MD [address] [place] [address] Surgeon Orthopedic Surgery 07/09/22 07/09/22 George Tolliver MD [address] [address] Surgeon Orthopedic Surgery 07/09/22 documented as of this encounter
--- OUTSIDE RECORDS SUMMARY | 2024-06-28 12:04 | XMS_ITS | Encounter Summary ---
Author Organization [facility] Address [address] [place] [address] Phone Care Team Providers Care Fitness And Wellness Director Name Role Phone Manoj Humphrey MD Unavailable Kavin Thomas MD Primary Care Provider [phone] Manoj Humphrey MD Unavailable Osmin Wheeler MD Unavailable [phone] George Tolliver MD Unavailable [phone] Encounter Details Date Type Department Care Team (Late st Contact Info) Description 06/05/2022 Telephone [facility] Cardiology [address] [facility] Advanced Medicine 8th [place] [address] [place] [address] Jose Miguel Curry MD [address] [facility] [address] [place] [address] Social History Tobacco Use Types Packs/Day Years Used Date Smoking Tobacco: Former Cigarettes 2 25 1 975 - 2000 Smokeless Tobacco: Never Alcohol Use Standard Drinks/Week Comments Yes 0 (1 standard drink = 0.6 oz pur e alcohol) 2 or 3 beers a week Sex and Gender Information Value Date Recorded Sex Assigned at Not on file 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 Gender Identity Male 09/03/2019 10:45 AM CDT Sexual Orientation Straight 10/01/2018 11 :21 AM CDT documented as of this encounter Plan of Treatment Not on file documented as of this encounter Visit Diagnoses Not on filedocumented in this encounter Additional Health Concerns Infection Onset Date Last Indicated Resolved Time COVID: Suspected 05/04/2023 05/04/2023 05/04/2023 2:33 PM WEATHER TEACHER COVID: Suspected 05/04/2023 05/04/2023 05/04/2023 9:17 PM WEATHER TEACHER Influenza, adult 05/04/2023 05/04/2023 05/11/2023 3:07 AM WEATHER TEACHER documented as of this encounter Care Teams Fitness And Wellness Director Relationship Specialty Start Date End Date Kavin Thomas MD PCP - General Family Medicine 05/27/22 Manoj Humphrey MD Consulting Physician Vascular Surgery 07/05/20 07/08/22 Manoj Humphrey MD Surgeon Vascular Surgery 07/09/22 Osmin Wheeler MD [address] [address] Surgeon Orthopedic Surgery 07/09/22 07/09/22 George Tolliver MD [address] [address] Surgeon Orthopedic Surgery 07/09/22 documented as of this encounter
== END 2024-06-28 11:08 | disposition home or self-care (01) ==
PROVIDERS: PCP Family Medicine; Visit Provider Student in an Organized Health Care Education/Training Program
DX: E03.9 Hypothyroidism, unspecified (principal)
CPT/HCPCS: 36415; 84443

== ENCOUNTER 2024-07-20 10:42 | Outpatient (CLI) | payer MEDICARE, BC, SELFPAY | END 2024-07-20 10:43 | disposition home or self-care (01) | LOC: ANHAUDIO 10:43 | PROVIDERS: PCP Family Medicine; Visit Provider Otolaryngology Otolaryngology/Facial Plastic Surgery | DX: H93.13 Tinnitus, bilateral (principal); H90.3 Sensorineural hearing loss, bilateral; H93.8X3 Other specified disorders of ear, bilateral; H61.23 Impacted cerumen, bilateral; H74.93 Unspecified disorder of middle ear and mastoid, bilateral | CPT/HCPCS: 92557; 92567 ==

== ENCOUNTER 2024-08-16 11:26 | Outpatient (CLI) | payer MEDICARE, BC, SELFPAY ==
--- OUTSIDE RECORDS SUMMARY | 2024-08-16 12:57 | XMS_ITS | Clinical Summary ---
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
--- OUTSIDE RECORDS SUMMARY | 2024-08-16 12:57 | XMS_ITS | Referral Summary ---
Author Organization [facility] Address [address] [place] [address] Care Team Providers Care [employer] Name Role Phone Manoj Humphrey MD Unavailable [phone] George Tolliver MD Unavailable [phone] Nicole Solorio MD Primary Care Provider + Encounters Date Type Department Care Team Description 07/28/2024 11:15 AM CDT Office Visit [facility] Vascular Surgery [address] [place] [address] Medical Office Building [address] [place] [id number] Jessica Amanda MD Asymptomatic bilateral carotid artery stenosis (Primary Dx); Abdominal aortic aneurysm (AAA) without rupture, unspecified part; Aftercare following surgery of the circulatory system 07/28/2024 10:15 AM CDT Ancillary Procedure [facility] Vascular Lab Vascular Surgery [address] [place] [address] [address] [facility] [place] [address] Asymptomatic bilateral carotid artery stenosis 07/28/2024 9:30 AM CDT Ancillary Procedure [facility] Vascular Lab Vascular Surgery [address] [place] [address] [address] [place] [address] Abdominal aortic aneurysm (AAA) without rupture, unspecified part; Personal history of allergy to radiographic dye; Arteriosclerotic vascular disease; Infrarenal abdominal aortic aneurysm (AAA) without rupture 06/11/2024 11:40 AM SPECIAL EDUCATION ITINERANT TEACHER - 06/11/2024 11:59 PM SPECIAL EDUCATION ITINERANT TEACHER Hospital Encounter [address] [address] HFrEF (heart failure with reduced ejection fraction) (HCC) Discharge Disposition: Discharge to home or self care 06/11/2024 11:45 AM SPECIAL EDUCATION ITINERANT TEACHER Lab [facility] Outpatient Lab at [address] [address] Hypertension (Primary Dx) 06/03/2024 11:18 AM SPECIAL EDUCATION ITINERANT TEACHER - 06/03/2024 11:59 PM SPECIAL EDUCATION ITINERANT TEACHER Hospital Encounter [address] [address] HFrEF (heart failure with reduced ejection fraction) ([facility]) Discharge Disposition: Discharge to home or self care 06/03/2024 11:15 AM SPECIAL EDUCATION ITINERANT TEACHER Lab [facility] Outpatient Lab at [address] [address] Hypertension (Primary Dx); Hypothyroidism 05/25/2024 Telephone [facility] Cardiology [address] [place] [address] Advanced Medicine 8th [place] [address] [place] [address] Jose Miguel Curry MD 05/25/2024 11:45 AM SPECIAL EDUCATION ITINERANT TEACHER Office Visit [facility] Cardiology 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 from Last 3 Months Allergies Active Allergy Reactions Criticality Noted Date Comments Adhesive Tape-Silicones Rash Medium Iodinated Contrast Media Hives Medium 08/07/2015 Iodine Rash High 03/03/2017 Latex Rash Medium Medications omega 6-hjg-akh-fish oil (FISH OIL) 100-160-1,000 mg capsule 0 [...] (two) times a day 8 Active multivitamin tabletIndicatio ns:Vitamin Deficiency Prevention,1/2 tab bid Take 1 tablet by mouth every morning 9 Active ascorbic acid (VITAMIN C) 1,000 mg tablet Take 1 tablet (1,000 mg total) by mouth 2 (two) times a day Active acetaminophen (TYLENOL) 500 mg tablet Take 1 tablet (500 mg total) by mouth every 6 (six) hours as needed for pain Active metoprolol XL (TOPROL-XL) 25 mg extended release tablet TAKE 1 TABLET(25 MG) BY MOUTH DAILY 90 tablet 2 4 Active nitroglycerin (NITROSTAT) 0.[address] 1 tablet (0.4 mg total) under the tongue every 5 (five) minutes as needed for chest pain 25 tablet 4 4 Active dapagliflozin propanediol (FARXIGA) 10 mg tabletIndicatio ns:Heart Failure Take 1 tablet (10 mg total) by mouth daily 90 tablet 3 5 026 Active sacubitriL-vals robin (ENTRESTO) 49-51 mg tabletIndicatio ns:chronic heart failure Take 1 tablet by mouth 2 (two) times a day 60 tablet 11 5 026 Active isosorbide mononitrate ER (IMDUR) 30 mg 24 hr tablet TAKE 1 TABLET(30 MG) BY MOUTH DAILY 90 tablet 1 5 Active atorvastatin (LIPITOR) 20 mg tablet TAKE 1 TABLET(20 MG) BY MOUTH DAILY 90 tablet 3 5 Active atorvastatin (LIPITOR) 20 mg tablet TAKE 1 TABLET(20 MG) BY MOUTH DAILY 90 tablet 2 4 025 Discontinued Active Problems Problem Noted Date Diagnosed Date Hypothyroidism 07/18/2020 Assessment & Plan (07/18/2020 12:18 PM SPECIAL EDUCATION ITINERANT TEACHER): -Continue home levothyroxine Allergy to iodinated contrast 07/18/2020 Assessment & Plan (07/18/2020 1:39 PM SPECIAL EDUCATION ITINERANT TEACHER): -premedicated with benadryl and prednisone -CTM closely for hives, rash, hypotension, SOB Hypertension 07/04/2020 Assessment & Plan (07/18/2020 12:17 PM SPECIAL EDUCATION ITINERANT TEACHER): -Resume home HTN meds as appropriate after surgery Assessment & Plan (07/04/2020 2:22 PM SPECIAL EDUCATION ITINERANT TEACHER): - OU - On imdur, norvasc and atenolol at home, resume when able. Abdominal aortic aneurysm (AAA) without rupture 06/23/2020 Assessment & Plan (07/18/2020 6:15 PM SPECIAL EDUCATION ITINERANT TEACHER): - 7.8cm Infrarenal AAA. To OR 07/18 for EVAR - Continue ASA/Plavix - Normotensive BP goals (<160 >90) - Flat for 6 hours - q2h nv checks - OU status - Bedrest tonight - Lamb out at midnight - Ok for clears tonight Assessment & Plan (07/04/2020 2:14 PM SPECIAL EDUCATION ITINERANT TEACHER): - CT shows 7.8 cm infrarenal aortic aneurysm, patient to return at later date for endovascular repair - BP control Asymptomatic bilateral carotid artery stenosis 1 06/03/2019 Assessment & Plan (07/04/2020 2:13 PM SPECIAL EDUCATION ITINERANT TEACHER): - s/p left carotid endarterectomy 07/04 [...] for 7-8 hours. 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 Sinus bradycardia 12/19/2016 Obstruction of carotid [...] on file Legal Sex Male 11:51 AM SPECIAL EDUCATION ITINERANT TEACHER Gender Identity Male 09/03/2019 10:45 AM CDT Sexual Orientation Straight 10/01/2018 11 :21 AM CDT Last Filed Vital Signs Vital Sign Reading Time Taken Comments Blood Pressure 126/76 07/28/2024 9:51 AM CDT Pulse 57 07/28/2024 9:51 AM CDT Temperature 36.4 C (97.6 F) 07/28/2024 9:51 AM CDT Respiratory Rate 12 09/19/2023 10:28 AM CDT Oxygen Saturation 96% 07/28/2024 9:51 AM CDT Inhaled Oxygen Concentration - - Weight 105.2 kg (232 lb) 07/28/2024 9:51 AM CDT Height 182.9 cm (6') 07/28/2024 9:51 AM CDT Body Mass Index 31.46 07/28/2024 9:51 AM CDT Plan of Treatment Not on file Medical Devices Implanted Type Area News Gathering Technician Device Identifier Shelf Expiration Date Model / Serial / Lot [employer]ig [employer] [id number] Angio-Seal Evolution 6fr .035in Guidewire Bypass Tube Suture - [id number] Implanted:Qty: 1 on 07/29/2019 by Gus Austin MD at [facility] Collagen [employer] 02/16/2020 [id number] / / [id number] Wl [employer] [id number] [place] Excluder C3 28.5mm 14.5mm 24-26mm 12-13.5mm 18cm Monroy Film - [id number] - [id number] Implanted:Qty: 1 on 07/18/2020 by Manoj Humphrey MD at [facility] Graft N/A: Aorta Wl [employer] [id number] 03/18/2023 [id number] / [id number] / 0 Wl [employer] [id number] Excluder 18mm 14.5-16.5mm 13.5cm Stent Abrasion Resistant - [id number] - [id number] Implanted:Qty: 1 on 07/18/2020 by Manoj Humphrey MD at [facility] Graft Right: Iliac Wl [employer] [id number] 02/21/2023 [id number] / [id number] / 0 Vicente Flinqer [id number] Vascu-Guard 8x.8cm Peripheral Patch Vascular Bovine Pericardium - S00 - [id number] Implanted:Qty: 1 on 07/04/2020 by Manoj Humphrey MD at [facility] Other - see comments Left: Neck Vicente FOLUP Sofia 01/25/2025 [id number] / 00 / [id number] Description:Bovine pericardi al patch [employer] 75744-84 Perclose 6fr Suture Mediate Knot Push Vascular Device Closure - S0 - [id number] Implanted:Qty: 1 on 07/18/2020 by Manoj Humphrey MD at [facility] Other - see comments Right: Groin [employer] [id number] 04/17/2022 [id number] / 0 / [id number] Description:Suture [employer] 82401-43 Perclose 6fr Suture Mediate Knot Push Vascular Device Closure - S0 - [id number] Implanted:Qty: 1 on 07/18/2020 by Manoj Humphrey MD at [facility] Other - see comments Right: Groin [employer] [id number] 04/17/2022 [id number] / 0 / [id number] Description:Suture [employer] 33650-62 Perclose 6fr Suture Mediate Knot Push Vascular Device Closure - S0 - [id number] Implanted:Qty: 1 on 07/18/2020 by Manoj Humphrey MD at [facility] Other - see comments Right: Groin [employer] [id number] 04/17/2022 53200-78 / 0 / [id number] Description:Suture [employer] 77863-26 Perclose 6fr Suture Mediate Knot Push Vascular Device Closure - S0 - [id number] Implanted:Qty: 1 on 07/18/2020 by Manoj Humphrey MD at [facility] Other - see comments Right: Groin [employer] [id number] 04/17/2022 [id number] / 0 / [id number] Description:Suture [employer] 37581-87 Perclose 6fr Suture Mediate Knot Push Vascular Device Closure - S0 - [id number] Implanted:Qty: 1 on 07/18/2020 by Manoj Humphrey MD at [facility] Other - see comments Right: Groin [employer] [id number] 04/17/2022 05864-15 / 0 [id number] Procedures Procedure Name Priority Date/Time Associated Diagnosis Comments US DUPLEX SCAN OF AORTA: INFERIOR VENA CAVA, ILIAC, COMPLETE Schedule Routine, Read Routine (OP Routine) 07/28/2024 10:28 AM CDT Abdominal aortic aneurysm (AAA) without rupture, unspecified part Personal history of allergy to radiographic dye Arteriosclerotic vascular disease Infrarenal abdominal aortic aneurysm (AAA) without rupture US CAROTIDS DUPLEX BILATERAL Schedule Routine, Read Routine (OP Routine) 07/28/2024 9:58 AM CDT Asymptomatic bilateral carotid artery stenosis EGFR Routine 06/11/2024 11:40 AM SPECIAL EDUCATION ITINERANT TEACHER HFrEF (heart failure with reduced ejection fraction) (HCC) BASIC METABOLIC PANEL Routine 06/11/2024 11:40 AM SPECIAL EDUCATION ITINERANT TEACHER HFrEF (heart failure with reduced ejection fraction) (HCC) EGFR Routine 06/03/2024 11:18 AM SPECIAL EDUCATION ITINERANT TEACHER HFrEF (heart failure with reduced ejection fraction) (HCC) BASIC METABOLIC PANEL Routine 06/03/2024 11:18 AM SPECIAL EDUCATION ITINERANT TEACHER HFrEF (heart failure with reduced ejection fraction) (HCC) CTA ABDOMEN PELVIS W WO CONTRAST Schedule Routine, Read Routine (OP Routine) 07/28/2023 3:13 PM CDT Encounter for surgical aftercare following surgery on the circulatory system from Last 3 Months or Most Recently Relevant to Health Maintenance Results * US Duplex Scan of Aorta; Inferior Vena Cava, Iliac, Complete (07/28/2024 10:28 AM CDT) Anatomical Region Laterality Modality Vascular Ultrasound 07/28/2024 9:27 AM CDT Narrative 07/28/2024 5:11 PM CDT [facility] - Department of Vascular Surgery, Vascular Laboratory [address] [place] [address] Abdominal Aortic Duplex Ultrasound Report Patient Name: OSCAR OLEARY : 1945 Study Date: 07/28/2024 9:27:41 AM Gender: M Tech: BAD Location: [facility] Provider: JESSICA AMANAD Quality: Adequate Order Provider: JESSICA AMANDA PROCEDURES: Arterial Report: Abdominal Aorta Stent Graft Duplex. INDICATIONS: I71.40 Abdominal aortic aneurysm, without rupture, unspecified, Z91.041 Radiographic dye allergy status, I70.90 Unspecified atherosclerosis, and I71.43 Infrarenal abdominal aortic aneurysm, without rupture. MEASUREMENTS: Aorta Value Units Prox (Celiac Level) A/P 2.04 cm Prox (Celiac Level) Trans 1.93 cm Mid (Suprarenal) A/P 3.77 cm Mid (Suprarenal) Trans 3.42 cm Mid (Infrarenal) A/P 6.38 cm Mid (Infrarenal) Trans 6.97 cm Distal (Infrarenal) A/P 6.40 cm Distal (Infrarenal) Trans 7.47 cm [place] Aorta Residual Sac Diameter (Post EVAR) 7.47 cm Aorta Stent Graft Body Prox 71.00 cm/s Aorta Stent Graft Body Mid 61.00 cm/s Aorta Stent Graft Body Dist 53.00 cm/s RT Iliac Limb Prox 68.00 cm/s RT Iliac Limb Mid 62.00 cm/s RT Iliac Limb Dist 120.00 cm/s LT Iliac Limb Prox 65.00 cm/s LT Iliac Limb Mid 59.00 cm/s LT Iliac Limb Dist 131.00 cm/s Aorta Value Units FINDINGS: Performing Scrub Tech: Florencia Benedict RVT. Study Quality: Adequate. Abdominal Aorta: Abdominal aorta stent graft body and bilateral limbs are patent. Largest size of the residual excluded alturas aorta sac is 7.47cm. There is no evidence of endoleak. Bilateral External Iliac Artery waveforms are multiphasic. Exam Location: [facility] Vascular Lab (Outpatient). CONCLUSIONS: 1. The study is technically adequate. 2. Largest size of the residual excluded alturas aorta sac is 7.47cm. There is no evidence of endoleak. HISTORY: hypercholesterolemia, CAD, AAA (reparired 07-18-20), HTN, aneurysm of basilar artery, LT carotid endarterectomy 07-04-20. - PREVIOUS STUDIES: No previous studies for comparison. 07/28/23 CT scan 62 mm x 72 mm infrarenal abdominal aortic aneurysm with stent graft in place. - DISCLAIMER: The study images and the final report will be retained in the patient chart by the Vascular Laboratory for the legally required time period. This chart constitutes the legal record of any testing performed. ATTESTATION: I have reviewed and interpreted the pertinent images and measurements of this study. I attest to the conclusions in the final report that is provided above. Electronically Signed By: Kingsley Noel MD [facility] [phone] 07/28/2024 4:47:59 PM CDT Procedure Note Kingsley Noel MD - 07/28/2024 [facility] - Department of Vascular Surgery,Vascular Laboratory [address] [place] [address] Abdominal Aortic Duplex Ultrasound Report Patient Name: OSCAR OLEARY : 1945 Study Date: 07/28/2024 9:27:41 AM Gender: M Tech: [facility] Location: [facility] Ref Provider: JESSICA AMANDA Quality: Adequate Order Provider: JESSICA AMANDA PROCEDURES: Arterial Report: Abdominal Aorta Stent Graft Duplex. INDICATIONS: I71.40 Abdominal aortic aneurysm, without rupture, unspecified, Z91.041Radiographic dye allergy status, I70.90 Unspecified atherosclerosis, and I71.43 Infrarenalabdominal aortic aneurysm, without rupture. MEASUREMENTS: Aorta Value Units Prox (Celiac Level) A/P 2.04 cm Prox (Celiac Level) Trans 1.93 cm Mid (Suprarenal) A/P 3.77 cm Mid (Suprarenal) Trans 3.42 cm Mid (Infrarenal) A/P 6.38 cm Mid (Infrarenal) Trans 6.97 cm Distal (Infrarenal) A/P 6.40 cm Distal (Infrarenal) Trans 7.47 cm [place] Aorta Residual Sac Diameter (Post EVAR) 7.47 cm Aorta Stent Graft Body Prox 71.00 cm/s Aorta Stent Graft Body Mid 61.00 cm/s Aorta Stent Graft Body Dist 53.00 cm/s RT Iliac Limb Prox 68.00 cm/s RT Iliac Limb Mid 62.00 cm/s RT Iliac Limb Dist 120.00 cm/s LT Iliac Limb Prox 65.00 cm/s LT Iliac Limb Mid 59.00 cm/s LT Iliac Limb Dist 131.00 cm/s Aorta Value Units FINDINGS: Performing Scrub Tech: Florencia Benedict RVT. Study Quality: Adequate. Abdominal Aorta: Abdominal aorta stent graft body and bilateral limbs are patent. Largest size of the residual excluded alturas aorta sac is 7.47cm. There is no evidence of endoleak. Bilateral External Iliac Artery waveforms are multiphasic. Exam Location: [facility] Vascular Lab (Outpatient). CONCLUSIONS: 1. The study is technically adequate. 2. Largest size of the residual excluded alturas aorta sac is 7.47cm. There is no evidence of endoleak. HISTORY: hypercholesterolemia, CAD, AAA (reparired 07-18-20), HTN, aneurysm ofbasilar artery, LT carotid endarterectomy 07-04-20. - PREVIOUS STUDIES: No previous studies for comparison. 07/28/23 CT scan 62 mm x 72 mm infrarenal abdominal aortic aneurysm with stent graft in place. - DISCLAIMER: The study images and the final report will be retained in the patientchart by the Vascular Laboratory for the legally required time period. This chartconstitutes the legal record of any testing performed. ATTESTATION: I have reviewed and interpreted the pertinent images and measurements ofthis study. I attest to the conclusions in the final report that is provided above. Electronically Signed By: Kingsley Noel MD [facility] [phone] 07/28/2024 4:47:59 PM CDT us Jessica Amanda MD IM US PROCEDURES Final Re sult * US Carotids Duplex Bilateral (07/28/2024 9:58 AM CDT) Anatomical Region Laterality Modality Vascular Bilateral Ultrasound 07/28/2024 9:14 AM CDT Narrative 07/28/2024 5:11 PM CDT [facility] - Department of Vascular Surgery, Vascular Laboratory [address] [place] [id number] Carotid Duplex Ultrasound Report Patient Name: OSCAR OLEARY : 1945 (78y 9m) Study Date: 07/28/2024 9:14:11 AM Gender: M Tech: BAD Location: [facility] Ref Provider: JESSICA AMANDA Quality: Adequate Order Provider: JESSICA AMANDA PROCEDURES: Carotid Report: Carotid duplex examination of the extracranial arteries was performed using 2D, color and spectral Doppler. INDICATIONS: I65.23 Occlusion and stenosis of bilateral carotid arteries. MEASUREMENTS: Right Value Units Left Value Units RT Prox CCA PSV 66 cm/sec LT Prox CCA PSV 65 cm/sec RT Prox CCA EDV 12 cm/sec LT Prox CCA EDV 15 cm/sec RT Distal CCA PSV 45 cm/sec LT Distal CCA PSV 58 cm/sec RT Distal CCA EDV 13 cm/sec LT Distal CCA EDV 17 cm/sec RT Prox ICA PSV 66 cm/sec LT Prox ICA PSV 30 cm/sec RT Prox ICA EDV 24 cm/sec LT Prox ICA EDV 14 cm/sec RT Mid ICA PSV 47 cm/sec LT Mid ICA PSV 39 cm/sec RT Mid ICA EDV 14 cm/sec LT Mid ICA EDV 16 cm/sec RT Distal ICA PSV 32 cm/sec LT Distal ICA PSV 42 cm/sec RT Distal ICA EDV 12 cm/sec LT Distal ICA EDV 15 cm/sec RT ECA Prx PSV 57 cm/sec LT ECA Prx PSV 30 cm/sec RT ICA/CCA 1.45 ratio LT ICA/CCA 0.71 ratio RT VERT PSV 33 cm/sec LT VERT PSV 31 cm/sec FINDINGS: Performing Scrub Tech: Florencia Benedict RVT. Rt Common Carotid Artery: The plaque in the right CCA appears to be heterogeneous and irregular. Atherosclerotic changes of the right common carotid artery with no hemodynamically significant Doppler findings. Rt Internal Carotid Artery: The plaque in the right internal carotid artery appears to be heterogeneous, calcified and irregular. Atherosclerotic changes of the right internal carotid artery without hemodynamically significant Doppler findings. <50% stenosis. Rt External Carotid Artery: Patent right external carotid artery with evidence of atherosclerotic disease present. Rt Vertebral Artery: The right vertebral artery is patent with antegrade flow. Lt Common Carotid Artery: Duplex imaging of the left common carotid artery is within normal limits without evidence of atherosclerotic disease. Lt Internal Carotid Artery: Duplex imaging of the left internal carotid artery is within normal limits without evidence of atherosclerotic disease. Lt External Carotid Artery: The left external carotid artery is patent without evidence of atherosclerotic plaque. Lt Vertebral Artery: The left vertebral artery is patent with antegrade flow. CONCLUSIONS: 1. The right internal carotid artery disease is consistent with a less than 50% stenosis. 2. No evidence of hemodynamically significant disease of the left extracranial carotid system. 3. No evidence of hemodynamically significant stenosis in the right common carotid artery. 4. Normal, antegrade flow is noted in bilateral vertebral arteries. HISTORY: hypercholesterolemia, CAD, AAA (reparired 07-18-20), HTN, aneurysm of basilar artery, LT carotid endarterectomy 07-04-20. - PREVIOUS STUDIES: Previous carotid ultrasound on 11/11/22 Rt=<50, Lt=normal antegrade verts - DISCLAIMER: The study images and the final report will be retained in the patient chart by the Vascular Laboratory for the legally required time period. This chart constitutes the legal record of any testing performed. ATTESTATION: I have reviewed and interpreted the pertinent images and measurements of this study. I attest to the conclusions in the final report that is provided above. Electronically Signed By: Kingsley Noel MD [facility] [phone] 07/28/2024 4:48:14 PM CDT Procedure Note Kingsley Noel MD - 07/28/2024 [facility] - Department of Vascular Surgery,Vascular Laboratory [address] [place] [address] Carotid Duplex Ultrasound Report Patient Name: OSCAR OLEARY : 1945 (78y 9m) Study Date: 07/28/2024 9:14:11 AM Gender: M Tech: [facility] Location: [facility] Ref Provider: JESSICA AMANDA Quality: Adequate Order Provider: JESSICA AMANDA PROCEDURES: Carotid Report: Carotid duplex examination of the extracranial arterieswas performed using 2D, color and spectral Doppler. INDICATIONS: I65.23 Occlusion and stenosis of bilateral carotid arteries. MEASUREMENTS: Right Value Units Left Value Units RT Prox CCA PSV 66 cm/sec LT Prox CCA PSV 65 cm/sec RT Prox CCA EDV 12 cm/sec LT Prox CCA EDV 15 cm/sec RT Distal CCA PSV 45 cm/sec LT Distal CCA PSV 58 cm/sec RT Distal CCA EDV 13 cm/sec LT Distal CCA EDV 17 cm/sec RT Prox ICA PSV 66 cm/sec LT Prox ICA PSV 30 cm/sec RT Prox ICA EDV 24 cm/sec LT Prox ICA EDV 14 cm/sec RT Mid ICA PSV 47 cm/sec LT Mid ICA PSV 39 cm/sec RT Mid ICA EDV 14 cm/sec LT Mid ICA EDV 16 cm/sec RT Distal ICA PSV 32 cm/sec LT Distal ICA PSV 42 cm/sec RT Distal ICA EDV 12 cm/sec LT Distal ICA EDV 15 cm/sec RT ECA Prx PSV 57 cm/sec LT ECA Prx PSV 30 cm/sec RT ICA/CCA 1.45 ratio LT ICA/CCA 0.71 ratio RT VERT PSV 33 cm/sec LT VERT PSV 31 cm/sec FINDINGS: Performing Scrub Tech: Florencia Benedict RVT. Rt Common Carotid Artery: The plaque in the right CCA appears to beheterogeneous and irregular. Atherosclerotic changes of the right common carotid artery withno hemodynamically significant Doppler findings. Rt Internal Carotid Artery: The plaque in the right internal carotidartery appears to be heterogeneous, calcified and irregular. Atherosclerotic changes of theright internal carotid artery without hemodynamically significant Doppler findings. <50%stenosis. Rt External Carotid Artery: Patent right external carotid artery withevidence of atherosclerotic disease present. Rt Vertebral Artery: The right vertebral artery is patent with antegradeflow. Lt Common Carotid Artery: Duplex imaging of the left common carotid arteryis within normal limits without evidence of atherosclerotic disease. Lt Internal Carotid Artery: Duplex imaging of the left internal carotidartery is within normal limits without evidence of atherosclerotic disease. Lt External Carotid Artery: The left external carotid artery is patentwithout evidence of atherosclerotic plaque. Lt Vertebral Artery: The left vertebral artery is patent with antegradeflow. CONCLUSIONS: 1. The right internal carotid artery disease is consistent with a lessthan 50% stenosis. 2. No evidence of hemodynamically significant disease of the leftextracranial carotid system. 3. No evidence of hemodynamically significant stenosis in the right commoncarotid artery. 4. Normal, antegrade flow is noted in bilateral vertebral arteries. HISTORY: hypercholesterolemia, CAD, AAA (reparired 07-18-20), HTN, aneurysm ofbasilar artery, LT carotid endarterectomy 07-04-20. - PREVIOUS STUDIES: Previous carotid ultrasound on 11/11/22 Rt=<50, Lt=normal antegrade verts - DISCLAIMER: The study images and the final report will be retained in the patientchart by the Vascular Laboratory for the legally required time period. This chartconstitutes the legal record of any testing performed. ATTESTATION: I have reviewed and interpreted the pertinent images and measurements ofthis study. I attest to the conclusions in the final report that is provided above. Electronically Signed By: Kingsley Noel MD [facility] [phone] 07/28/2024 4:48:14 PM CDT us Jessica Amanda MD IM US PROCEDURES Final Re sult * eGFR (06/11/2024 11:40 AM SPECIAL EDUCATION ITINERANT TEACHER) eGFR 61 >=60 mL/min/1. 73 m2 [...] of Race in Diagnosing Kidney Disease, JASN 2021). The CKD-EPI equation should not be used for patients with unstable renal function and has not been validated in children and those over 70. Current interpretive data was last reviewed 2021. Blood 06/11/2024 11:4 0 AM SPECIAL EDUCATION ITINERANT TEACHER 06/11/2024 3:00 PM SPECIAL EDUCATION ITINERANT TEACHER us Jose Miguel Curry MD LAB BLOOD ORDERABLES Final Result Performing Organization Address City/State/ZIP [place] Phone Number [facility] [address] [place] [address] * Basic metabolic panel (06/11/2024 11:40 AM SPECIAL EDUCATION ITINERANT TEACHER) Sodium 139 135 - 145 mmol/L Potassium, pl 4.7 3.3 - 4.9 mmol/L [facility] Chloride 103 97 - 110 mmol/L [facility] CO2 27 22 - 32 mmol/L [facility] Anion gap 9 2 - 15 mmol/L [facility] BUN 21 6 - 25 mg/dL [facility] Creatinine 1.21 0.80 - 1.30 mg/dL [facility] Glucose 105 70 - 199 mg/dL [facility] Comment: Interpretive Data Fasting glucose >/= [...] 2022. Calcium 9.1 8.5 - 10.3 mg/dL [facility] Blood 06/11/2024 11:4 0 AM SPECIAL EDUCATION ITINERANT TEACHER 06/11/2024 2:51 PM SPECIAL EDUCATION ITINERANT TEACHER Jose Miguel Curry MD LAB BLOOD ORDERABLES Final Result [facility] [address] [address] Department [place] [address] * eGFR (06/03/2024 11:18 AM SPECIAL EDUCATION ITINERANT TEACHER) eGFR 60 >=60 mL/min/1. 73 m2 [...] reviewed 2021. Blood 06/03/2024 11:1 8 AM SPECIAL EDUCATION ITINERANT TEACHER 06/03/2024 3:22 PM SPECIAL EDUCATION ITINERANT TEACHER Jose Miguel Curry MD LAB BLOOD ORDERABLES Final Result [facility] [address] [address] Department of Laboratories [place] [id number] * (ABNORMAL) Basic metabolic panel (06/03/2024 11:18 AM SPECIAL EDUCATION ITINERANT TEACHER) Sodium 142 135 - 145 mmol/L Potassium, pl 5.0(H) 3.3 - 4.9 mmol/L [facility] Chloride 105 97 - 110 mmol/L [facility] CO2 26 22 - 32 mmol/L [facility] Anion gap 11 2 - 15 mmol/L [facility] BUN 16 6 - 25 mg/dL [facility] Creatinine 1.23 0.80 - 1.30 mg/dL [facility] Glucose 100 70 - 199 mg/dL [facility] Comment: Interpretive Data Fasting glucose >/= [...] 2022. Calcium 9.2 8.5 - 10.3 mg/dL [facility] Blood 06/03/2024 11:1 8 AM SPECIAL EDUCATION ITINERANT TEACHER 06/03/2024 3:20 PM SPECIAL EDUCATION ITINERANT TEACHER Jose Miguel Curry MD LAB BLOOD ORDERABLES Final Result [facility] [address] [place] [address] * CTA Abdomen Pelvis (07/28/2023 3:13 PM [...] an infrarenal abdominal aortic aneurysm with an [id number]-ji-otnal stent graft in place. The proximal attachment [...] is 62 mm AP x 72 mm [id number]-[id number]. This is stable since the prior exam. The maximum diameter of the graft is 28 mm AP x 26 mm [id number]. This is stable since the prior exam. [...] an infrarenal abdominal aortic aneurysm with an alheb-mn-gxecu stent graft in place. The proximal attachment [...] is 62 mm AP x 72 mm [id number]-cf-[id number]. This is stable since the prior exam. The maximum diameter of the graft is 28 mm AP x 26 mm pyaww-gw-awch. This is stable since the prior exam. [...] Recently Relevant to Health Maintenance Insurance MEDICARE [facility] MEDICARE [facility] MEDICARE [employer] MEDICARE [facility] Advance Directives For more information, please contact: [phone] * Full Code (Latest Code Status on [...] Oleary Spouse Health Care Agent Care Teams Cook Fish And Chips Relationship Specialty Start Date End Date Nicole Solorio MD [facility] [address] [place] [address] PCP - General Family Medicine 07/28/24 Manoj Humphrey MD Surgeon Vascular Surgery 07/09/22 George Tolliver MD [address] [facility] [address] [facility] [address] [place] [address] Surgeon Orthopedic Surgery 07/09/22
--- OUTSIDE RECORDS SUMMARY | 2024-08-16 12:57 | XMS_ITS | Encounter Summary ---
Author Organization [facility] Address [address] [place] [address] Phone Care Team Providers Care Pad Machine Offbearer Name Role Phone Manoj Humphrey MD Unavailable Kavin Thomas MD Primary Care Provider [phone] Manoj Humphrey MD Unavailable Osmin Wheeler MD Unavailable [phone] George Tolliver MD Unavailable [phone] Nicole Solorio MD Primary Care Provider + Encounter Details Date Type Department Care Team (Late st Contact Info) Description 06/05/2022 Telephone [facility] Cardiology [address] [facility] Advanced Medicine 8th [place] [address] [place] [id number] Jose Miguel Curry MD [address] [facility] [address] [place] [address] Social History Tobacco Use Types Packs/Day Years Used Date Smoking Tobacco: Former Cigarettes 2 25 1 975 - 2000 Smokeless Tobacco: Never Alcohol Use Standard Drinks/Week Comments Yes 0 (1 standard drink = 0.6 oz pur e alcohol) 2 or 3 beers a week Sex and Gender Information Value Date Recorded Sex Assigned at Not on file Legal Sex Male 11:51 AM WIND TURBINE CONTROLS ENGINEER Gender Identity Male 09/03/2019 10:45 AM CDT Sexual Orientation Straight 10/01/2018 11 :21 AM CDT documented as of this encounter Plan of Treatment Not on file documented as of this encounter Visit Diagnoses Not on filedocumented in this encounter Additional Health Concerns Infection Onset Date Last Indicated Resolved Time COVID: Suspected 05/04/2023 05/04/2023 05/04/2023 2:33 PM WIND TURBINE CONTROLS ENGINEER COVID: Suspected 05/04/2023 05/04/2023 05/04/2023 9:17 PM WIND TURBINE CONTROLS ENGINEER Influenza, adult 05/04/2023 05/04/2023 05/11/2023 3:07 AM WIND TURBINE CONTROLS ENGINEER documented as of this encounter Care Teams Pad Machine Offbearer Relationship Specialty Start Date End Date Kavin Thomas MD PCP - General Family Medicine 05/27/22 07/27/24 Nicole Solorio MD [address] [facility] [address] [address] PCP - General Family Medicine 07/28/24 Manoj Humphrey MD Consulting Physician Vascular Surgery 07/05/20 07/08/22 Manoj Humphrey MD Surgeon Vascular Surgery 07/09/22 Osmin Wheeler MD [address] [facility] [address] [address] Surgeon Orthopedic Surgery 07/09/22 07/09/22 George Tolliver MD [address] [address] Surgeon Orthopedic Surgery 07/09/22 documented as of this encounter
--- OUTSIDE RECORDS SUMMARY | 2024-08-16 12:57 | XMS_ITS | Encounter Summary ---
Author Organization [facility] Address [address] [place] [address] Phone Care Team Providers Care Buttermilk Drier Operator Name Role Phone Esther Fleming MD Primary Care Provider [phone] Manoj Humphrey MD Unavailable Kavin Thomas MD Primary Care Provider [phone] Manoj Humphrey MD Unavailable Osmin Wheeler MD Unavailable [phone] George Tolliver MD Unavailable [phone] Nicole Solorio MD Primary Care Provider + [...] on file Legal Sex Male 11:51 AM CONDITIONING YARD SUPERVISOR Gender Identity Male 09/03/2019 10:45 AM CDT [...] COVID: Suspected 05/04/2023 05/04/2023 05/04/2023 2:33 PM CONDITIONING YARD SUPERVISOR COVID: Suspected 05/04/2023 05/04/2023 05/04/2023 9:17 PM CONDITIONING YARD SUPERVISOR Influenza, adult 05/04/2023 05/04/2023 05/11/2023 3:07 AM CONDITIONING YARD SUPERVISOR documented as of this encounter Care Teams Buttermilk Drier Operator Relationship Specialty Start Date End Date Esther Fleming MD [address] [place] [address] PCP - General 09/26/16 05/26/22 Kavin Thomas MD [address] [place] [address] PCP - General Family Medicine 05/27/22 07/27/24 Nicole Solorio MD [address] [facility] [place] [address] PCP - General Family Medicine 07/28/24 Manoj Humphrey MD [address] [place] [address] Consulting Physician Vascular Surgery 07/05/20 07/08/22 Manoj Humphrey MD [address] [place] [address] Surgeon Vascular Surgery 07/09/22 [place] [address] [place] [address] [place] [address] Surgeon Orthopedic Surgery 07/09/22 07/09/22 George Tolliver MD [address] [place] [address] Surgeon Orthopedic Surgery 07/09/22 documented as of this encounter
--- OUTSIDE RECORDS SUMMARY | 2024-08-16 12:57 | XMS_ITS | Clinical Summary ---
Author Organization [facility] Address [address] [place] [address] Care Team Providers Care Lab Scientist Name Role Phone Manoj Humphrey MD Unavailable [phone] George Tolliver MD Unavailable [phone] Nicole Solorio MD Primary Care Provider + Allergies Active Allergy Reactions Criticality Noted Date Comments Adhesive Tape-Silicones Rash Medium Iodinated Contrast Media Hives Medium 08/07/2015 Iodine Rash High 03/03/2017 Latex Rash Medium Medications omega 1-sit-crg-fish oil (FISH OIL) 100-160-1,000 mg capsule 0 [...] 07/18/2020 Assessment & Plan (07/18/2020 12:18 PM EXPERIMENTAL MECHANIC OUTBOARD MOTORS): -Continue home levothyroxine Allergy to iodinated contrast 07/18/2020 Assessment & Plan (07/18/2020 1:39 PM EXPERIMENTAL MECHANIC OUTBOARD MOTORS): -premedicated with benadryl and prednisone -CTM closely for hives, rash, hypotension, SOB Hypertension 07/04/2020 Assessment & Plan (07/18/2020 12:17 PM EXPERIMENTAL MECHANIC OUTBOARD MOTORS): -Resume home HTN meds as appropriate after surgery Assessment & Plan (07/04/2020 2:22 PM EXPERIMENTAL MECHANIC OUTBOARD MOTORS): - OU - On imdur, norvasc and atenolol at home, resume when able. Abdominal aortic aneurysm (AAA) without rupture 06/23/2020 Assessment & Plan (07/18/2020 6:15 PM EXPERIMENTAL MECHANIC OUTBOARD MOTORS): - 7.8cm Infrarenal AAA. To OR 07/18 for EVAR - Continue ASA/Plavix - Normotensive BP goals (<160 >90) - Flat for 6 hours - q2h nv checks - OU status - Bedrest tonight - Lamb out at midnight - Ok for clears tonight Assessment & Plan (07/04/2020 2:14 PM EXPERIMENTAL MECHANIC OUTBOARD MOTORS): - CT shows 7.8 cm infrarenal aortic aneurysm, patient to return at later date for endovascular repair - BP control Asymptomatic bilateral carotid artery stenosis 1 06/03/2019 Assessment & Plan (07/04/2020 2:13 PM EXPERIMENTAL MECHANIC OUTBOARD MOTORS): - s/p left carotid endarterectomy 07/04 - [...] Description 07/28/2024 11:15 AM CDT Office Visit [facility] Vascular Surgery [address] [place] [address] Medical Office Building [address] [place] [address] Jessica Amanda MD Asymptomatic bilateral carotid artery stenosis (Primary Dx); Abdominal aortic aneurysm (AAA) without rupture, unspecified part; Aftercare following surgery of the circulatory system 07/28/2024 10:15 AM CDT Ancillary Procedure [facility] Vascular Lab Vascular Surgery [address] [place] [id number] Asymptomatic bilateral carotid artery stenosis 07/28/2024 9:30 AM CDT Ancillary Procedure [facility] Vascular Lab Vascular Surgery [address] [place] [id number] Abdominal aortic aneurysm (AAA) without rupture, unspecified part; Personal history of allergy to radiographic dye; Arteriosclerotic vascular disease; Infrarenal abdominal aortic aneurysm (AAA) without rupture 06/11/2024 11:45 AM EXPERIMENTAL MECHANIC OUTBOARD MOTORS Lab [facility] Outpatient Lab at [address] [phone] Hypertension (Primary Dx) 06/11/2024 11:40 AM EXPERIMENTAL MECHANIC OUTBOARD MOTORS - 06/11/2024 11:59 PM EXPERIMENTAL MECHANIC OUTBOARD MOTORS Hospital Encounter [address] [address] HFrEF (heart failure with reduced ejection fraction) (HCC) Discharge Disposition: Discharge to home or self care 06/03/2024 11:18 AM EXPERIMENTAL MECHANIC OUTBOARD MOTORS - 06/03/2024 11:59 PM EXPERIMENTAL MECHANIC OUTBOARD MOTORS Hospital Encounter [address] [address] HFrEF (heart failure with reduced ejection fraction) (HCC) Discharge Disposition: Discharge to home or self care 06/03/2024 11:15 AM EXPERIMENTAL MECHANIC OUTBOARD MOTORS Lab [facility] Outpatient Lab at [address] [address] Hypertension (Primary Dx); Hypothyroidism 05/25/2024 11:45 AM EXPERIMENTAL MECHANIC OUTBOARD MOTORS Office Visit [facility] Cardiology [address] [facility] Medical Office Building 3 [address] [place] [phone] Jose Miguel Curry MD Primary hypertension (Primary Dx); HFrEF (heart failure with reduced ejection fraction) (HCC); Mixed hyperlipidemia; Coronary artery disease involving [place] coronary artery of [place] heart without angina pectoris 05/25/2024 Telephone [facility] Cardiology [address] [place] [address] 8th [place] [address] [place] [address] Jose Miguel Curry MD from Last 3 [...] Adiposity Obesity Hx Other Medical Hyperlipidemia; Comments: MPB 01/20/2015 - Hx Other Medical knee surgery; C omments: MPB 01/20/2015 - Thyroid disease Hyperlipidemia Heart disease By Pass & Stents Beg an in 1988 Kidney stone 15 years ago Asymptomatic bilateral carot id artery stenosis 04/03/2020 GWEN on CPAP 2004 Carotid stenosis, bilateral Cataract 2019 Family History Medical History Relation Name Comments Alcohol abuse Brother 1 Yuan Oleary Sleep apnea Brother 1 Yuan Oleary Sleep apnea; Alcohol abuse Brother 2 Pilo Oleary Memory loss Father Pilo Harvey Kidney disease Mother Viviane Oleary Stroke Mother [...] on file Legal Sex Male 11:51 AM EXPERIMENTAL MECHANIC OUTBOARD MOTORS Gender Identity Male 09/03/2019 10:45 AM CDT [...] 07/28/2024 9:51 AM CDT Plan of Treatment Health Maintenance Due Date Last Done Comments Depression Screening 1945 Hepatitis C Screening 1945 Hepatitis B Screening 1962 Pneumococcal vaccine 65+ (1 of 2 - PCV) 10/13/1963 Lung Cancer Screening 1994 Zoster Vaccine (1 of 2) 1994 Well Visit 65+ 2009 Fall Risk Assessment 07/19/2021 07/19/2020 DTaP/Tdap/Td Vaccine (2 - Td or Tdap) 07/09/2024 07/09/2014 Influenza Vaccine Completed 03/22/2024, , 02/02/2018 Abdominal Aortic Aneurysm (A AA) Screen Completed 07/28/2024, 07/28/2024, 07/28/2024, Additional history exists Medical Devices Implanted Type Area Children'S Nursery Assistant Device Identifier Shelf Expiration Date Model / Serial / Lot [employer]ig [employer] [id number] Angio-Seal Evolution 6fr .035in Guidewire Bypass Tube Suture - [id number] Implanted:Qty: 1 on 07/29/2019 by Gus Austin MD at [facility] Collagen [employer] 02/16/2020 [id number] / / [id number] [employer] [id number] Pendleton Excluder C3 28.5mm 14.5mm 24-26mm 12-13.5mm 18cm Monroy Film - [id number] - [id number] Implanted:Qty: 1 on 07/18/2020 by Manoj Humphrey MD at [facility] Graft N/A: Aorta [employer] [id number] 03/18/2023 [id number] / [id number] / 0 [employer] [id number] Excluder 18mm 14.5-16.5mm 13.5cm Stent Abrasion Resistant - [id number] - [id number] Implanted:Qty: 1 on 07/18/2020 by Manoj Humphrey MD at [facility] Graft Right: Iliac [employer] [id number] 02/21/2023 [id number] / [id number] / 0 [facility]ia [id number] Vascu-Guard 8x.8cm Peripheral Patch Vascular Bovine Pericardium - S00 - [id number] Implanted:Qty: 1 on 07/04/2020 by Manoj Humphrey MD at [facility] Other - see comments Left: Neck Vicente [employer] Sofia 01/25/2025 [id number] / 00 / [id number] Description:Bovine pericardi al patch [employer] 22082-36 Perclose 6fr Suture Mediate Knot Push Vascular Device Closure - S0 - [id number] Implanted:Qty: 1 on 07/18/2020 by Manoj Humphrey MD at [facility] Other - see comments Right: Groin [employer] [id number] 04/17/2022 35969-73 / 0 / [id number] Description:Suture [employer] 42187-37 Perclose 6fr Suture Mediate Knot Push Vascular Device Closure - S0 - [id number] Implanted:Qty: 1 on 07/18/2020 by Manoj Humphrey MD at [facility] Other - see comments Right: Groin [employer] [id number] 04/17/2022 98332-74 / 0 / [id number] Description:Suture [employer] 42440-00 Perclose 6fr Suture Mediate Knot Push Vascular Device Closure - S0 - [id number] Implanted:Qty: 1 on 07/18/2020 by Manoj Humphrey MD at [facility] Other - see comments Right: Groin [employer] [id number] 04/17/2022 12857-17 / 0 / [id number] Description:Suture [employer] 09887-77 Perclose 6fr Suture Mediate Knot Push Vascular Device Closure - S0 - [id number] Implanted:Qty: 1 on 07/18/2020 by Manoj Humphrey MD at [facility] Other - see comments Right: Groin [employer] [id number] 04/17/2022 25597-58 / 0 / [id number] Description:Suture [employer] 49625-05 Perclose 6fr Suture Mediate Knot Push Vascular Device Closure - S0 - [id number] Implanted:Qty: 1 on 07/18/2020 by Manoj Humphrey MD at [facility] Other - see comments Right: Groin [employer] [id number] 04/17/2022 29341-83 0 / [id number] Procedures Procedure Name Priority Date/Time Associated Diagnosis [...] artery stenosis EGFR Routine 06/11/2024 11:40 AM EXPERIMENTAL MECHANIC OUTBOARD MOTORS HFrEF (heart failure with reduced ejection fraction) (HCC) BASIC METABOLIC PANEL Routine 06/11/2024 11:40 AM EXPERIMENTAL MECHANIC OUTBOARD MOTORS HFrEF (heart failure with reduced ejection fraction) (HCC) EGFR Routine 06/03/2024 11:18 AM EXPERIMENTAL MECHANIC OUTBOARD MOTORS HFrEF (heart failure with reduced ejection fraction) (HCC) BASIC METABOLIC PANEL Routine 06/03/2024 11:18 AM EXPERIMENTAL MECHANIC OUTBOARD MOTORS HFrEF (heart failure with reduced ejection fraction) [...] - Department of Vascular Surgery, Vascular Laboratory [address] [place] [address] Abdominal Aortic Duplex Ultrasound Report Patient Name: OSCAR OLEARY : 1945 Study Date: 07/28/2024 9:27:41 AM Gender: M Tech: [facility] Location: [facility] Provider: JESSICA AMANDA Quality: Adequate Order Provider: [...] 6.40 cm Distal (Infrarenal) Trans 7.47 cm [place] Aorta Residual Sac Diameter (Post EVAR) 7.47 [...] 131.00 cm/s Aorta Value Units FINDINGS: Performing Dining Room Supervisor: Florencia Benedict RVT. Study Quality: Adequate. Abdominal Aorta: Abdominal aorta stent graft body and bilateral limbs are patent. Largest size of the residual excluded [place] aorta sac is 7.47cm. There is no evidence of endoleak. Bilateral External Iliac Artery waveforms are multiphasic. Exam Location: [facility] Vascular Lab (Outpatient). CONCLUSIONS: 1. The study is technically adequate. 2. Largest size of the residual excluded [place] aorta sac is 7.47cm. There is no [...] above. Electronically Signed By: Kingsley Noel MD [facility] [phone] 07/28/2024 4:47:59 PM CDT Procedure Note Kingsley Noel MD - 07/28/2024 [employer] [facility] [employer] [facility] - Department of Vascular Surgery,Vascular Laboratory [address] [place] [address] Abdominal Aortic Duplex Ultrasound Report Patient Name: OSCAR OLEARY : 1945 Study Date: 07/28/2024 9:27:41 AM Gender: M Tech: BAD [facility] Ref Provider: JESSICA AMANDA Quality: Adequate Order [...] 6.40 cm Distal (Infrarenal) Trans 7.47 cm [place] Aorta Residual Sac Diameter (Post EVAR) 7.47 [...] 131.00 cm/s Aorta Value Units FINDINGS: Performing Dining Room Supervisor: Florencia Benedict RVT. Study Quality: Adequate. Abdominal Aorta: Abdominal aorta stent graft body and bilateral limbs are patent. Largest size of the residual excluded [place] aorta sac is 7.47cm. There is no evidence of endoleak. Bilateral External Iliac Artery waveforms are multiphasic. Exam Location: [facility] Vascular Lab (Outpatient). CONCLUSIONS: 1. The study is technically adequate. 2. Largest size of the residual excluded [place] aorta sac is 7.47cm. There is no [...] above. Electronically Signed By: Kingsley Noel MD [facility] [phone] 07/28/2024 4:47:59 PM CDT Jessica Amanda MD IMG US PROCEDURES Final Re sult * US Carotids Duplex Bilateral (07/28/2024 9:58 AM CDT) Anatomical Region Laterality Modality Vascular Bilateral Ultrasound 07/28/2024 9:14 AM CDT Narrative 07/28/2024 5:11 PM CDT [employer] [facility] [employer] [facility] - Department of Vascular Surgery, Vascular Laboratory [address] [place] [address] Carotid Duplex Ultrasound Report Patient Name: OSCAR OLEARY : 1945 (78y 9m) Study Date: 07/28/2024 9:14:11 AM Gender: M Tech: BAD Location: [facility] Ref Provider: JESSICA AMANDA Quality: Adequate Order [...] LT VERT PSV 31 cm/sec FINDINGS: Performing Dining Room Supervisor: Florencia Benedict RVT. Rt Common Carotid Artery: [...] above. Electronically Signed By: Kingsley Noel MD [facility] [phone] 07/28/2024 4:48:14 PM CDT Procedure Note Kingsley Noel MD - 07/28/2024 [facility] - Department of Vascular Surgery,Vascular Laboratory [address] [place] [address] Carotid Duplex Ultrasound Report Patient Name: OSCAR OLEARY : 1945 (78y 9m) Study Date: 07/28/2024 9:14:11 AM Gender: M Tech: BAD Location: [facility] Ref Provider: JESSICA AMANDA Quality: Adequate Order [...] LT VERT PSV 31 cm/sec FINDINGS: Performing Dining Room Supervisor: ZHOU ClarosT. Rt Common Carotid Artery: The plaque in [...] above. Electronically Signed By: Kingsley Noel MD [facility] [phone] 07/28/2024 4:48:14 PM CDT Jessica Amanda MD IMG US PROCEDURES Final Re sult * eGFR (06/11/2024 11:40 AM EXPERIMENTAL MECHANIC OUTBOARD MOTORS) eGFR 61 >=60 mL/min/1. 73 m2 Comment: [...] reviewed 2021. Blood 06/11/2024 11:4 0 AM EXPERIMENTAL MECHANIC OUTBOARD MOTORS 06/11/2024 3:00 PM EXPERIMENTAL MECHANIC OUTBOARD MOTORS Jose Miguel Curry MD LAB BLOOD ORDERABLES Final Result [facility] [address] Department of Laboratories [place] [phone] * Basic metabolic panel (06/11/2024 11:40 AM EXPERIMENTAL MECHANIC OUTBOARD MOTORS) Sodium 139 135 - 145 mmol/L Potassium, pl 4.7 3.3 - 4.9 mmol/L [facility] Chloride 103 97 - 110 mmol/L [facility] CO2 27 22 - 32 mmol/L [facility] Anion gap 9 2 - 15 mmol/L [facility] BUN 21 6 - 25 mg/dL [facility] Creatinine 1.21 0.80 - 1.30 mg/dL [facility] Glucose 105 70 - 199 mg/dL [facility] Comment: Interpretive Data Fasting glucose >/= [...] 2022. Calcium 9.1 8.5 - 10.3 mg/dL [facility] Blood 06/11/2024 11:4 0 AM EXPERIMENTAL MECHANIC OUTBOARD MOTORS 06/11/2024 2:51 PM EXPERIMENTAL MECHANIC OUTBOARD MOTORS Jose Miguel Curry MD LAB BLOOD ORDERABLES Final Result [facility] [address] Department [place] [address] * eGFR (06/03/2024 11:18 AM EXPERIMENTAL MECHANIC OUTBOARD MOTORS) eGFR 60 >=60 mL/min/1. 73 m2 Comment: [...] reviewed 2021. Blood 06/03/2024 11:1 8 AM EXPERIMENTAL MECHANIC OUTBOARD MOTORS 06/03/2024 3:22 PM EXPERIMENTAL MECHANIC OUTBOARD MOTORS Jose Miguel Curry MD LAB BLOOD ORDERABLES Final Result [facility] [address] Department [place] [address] * (ABNORMAL) Basic metabolic panel (06/03/2024 11:18 AM EXPERIMENTAL MECHANIC OUTBOARD MOTORS) Sodium 142 135 - 145 mmol/L Potassium, pl 5.0(H) 3.3 - 4.9 mmol/L CERNER Chloride 105 97 - 110 mmol/L [facility] CO2 26 22 - 32 mmol/L [facility] Anion gap 11 2 - 15 mmol/L [facility] BUN 16 6 - 25 mg/dL [facility] Creatinine 1.23 0.80 - 1.30 mg/dL [facility] Glucose 100 70 - 199 mg/dL [facility] Comment: Interpretive Data Fasting glucose >/= [...] 2022. Calcium 9.2 8.5 - 10.3 mg/dL [facility] Blood 06/03/2024 11:1 8 AM EXPERIMENTAL MECHANIC OUTBOARD MOTORS 06/03/2024 3:20 PM EXPERIMENTAL MECHANIC OUTBOARD MOTORS Jose Miguel Curry MD LAB BLOOD ORDERABLES Final Result [facility] [address] [address] Department [place] [address] * CTA Abdomen Pelvis (07/28/2023 3:13 PM [...] an infrarenal abdominal aortic aneurysm with an qpkar-at-qclnr stent graft in place. The proximal attachment [...] is 62 mm AP x 72 mm [id number]-[id number]-gpzh. This is stable since the prior exam. The maximum diameter of the graft is 28 mm AP x 26 mm eafox-ql-gjdt. This is stable since the prior exam. [...] an infrarenal abdominal aortic aneurysm with an nkmdd-nq-ujunp stent graft in place. The proximal attachment [...] is 62 mm AP x 72 mm wbvun-oe-daxc. This is stable since the prior exam. The maximum diameter of the graft is 28 mm AP x 26 mm tvihl-ht-iaqw. This is stable since the prior exam. [...] Recently Relevant to Health Maintenance Insurance MEDICARE [facility] Address: [facility] [address] [place] [address] [facility] FEDERAL MEDICARE [facility] Address: [address] [address] [facility] FEDERAL MEDICARE [facility] MEDICARE [facility] FEDERAL Advance Directives For more information, please contact: [phone] * Full Code (Latest Code Status on [...] Oleary Spouse Health Care Agent Care Teams Lab Scientist Relationship Specialty Start Date End Date Nicole Solorio MD [facility] [address] [place] [address] PCP - General Family Medicine 07/28/24 Manoj Humphrey MD Surgeon Vascular Surgery 07/09/22 George Tolliver MD [address] [facility] [address] [facility] [address] [place] [address] Surgeon Orthopedic Surgery 07/09/22
[2024-08-16 13:28] LABS: Basophils Absolute Auto 0.1 K/mm3 (0.0-0.1); Basophils Percent Auto 0.9 % (0.2-1.2); Eosinophils Absolute Auto 0.3 K/mm3 (0-0.3); Eosinophils Percent Auto 3.3 % (0-4.4); Hematocrit 53.6 % (42.0-52.0); Hemoglobin 17.6 g/dL (14.0-18.0); Immature Granulocyte Absolute 0.06 K/mm3 (0.00-0.031); Immature Granulocyte Percent A 0.8 % (0-0.5); Lymphocytes Absolute Auto 1.25 K/mm3 (0.9-3.2); Lymphocytes Percent Auto 16.4 % (18.3-44.2); Mean Corpuscular HGB Conc 32.8 g/dl (32-36); Mean Corpuscular Hemoglobin 32.2 pg (26-34); Mean Platelet Volume 10.2 fl (7.4-10.4); Monocytes Absolute Auto 0.7 K/mm3 (0.1-0.6); Monocytes Percent Auto 8.8 % (2.6-8.5); Neutrophils Absolute Auto 5.3 K/mm3 (1.3-6.7); Neutrophils Percent Auto 69.8 % (45.5-73.1); Platelet Count Result 177 k/mm3 (150-375); Red Blood Count 5.47 M/mm3 (4.6-6.20); Red Cell Distribution Width 12.4 % (11.5-14.5); White Blood Count 7.6 K/mm3 (4.5-10.0)
[2024-08-16 14:33] LABS: Alanine Aminotransferase 29 U/L (6-50); Albumin Level 4.4 g/dL (3.5-5.1); Alkaline Phosphatase 80 U/L (38-126); Anion Gap 7 mmol/L (4-12); Aspartate Amino Transferase 44 U/L (17-59); Bilirubin,Total 0.8 mg/dL (0.2-1.3); Blood Urea Nitrogen 19 mg/dL (9-20); Calcium 8.8 mg/dL (8.4-10.2); Carbon Dioxide 30 mmol/L (22-30); Chloride 103 mmol/L (98-107); Cholesterol 95 mg/dL (0-200); Estimated Glomerular Filt Rate 57; Glucose 104 mg/dL (65-110); HDL Direct 30 mg/dL; Potassium 4.8 mmol/L (3.4-5.0); Sodium 140 mmol/L (137-145); Triglycerides 132 mg/dL (<150)
[2024-08-16 14:47] LABS: LDL Cholesterol Direct 43 mg/dL
== END 2024-08-16 11:27 | disposition home or self-care (01) ==
LOC: ANHGOSHLAB 11:26
PROVIDERS: PCP Family Medicine; Visit Provider Family Medicine
DX: E78.2 Mixed hyperlipidemia (principal); G57.93 Unspecified mononeuropathy of bilateral lower limbs; G47.33 Obstructive sleep apnea (adult) (pediatric)
CPT/HCPCS: 36415; 80053; 80061; 82607; 85025

== ENCOUNTER 2024-09-03 14:04 | Outpatient (CLI) | payer MEDICARE, BC, SELFPAY ==
--- NOTE | ~2024-09-03 | CT_ITS ---
CT sinus wo con Ordering provider: Rodríguez Santos MD History: . J30.1 - Allergic rhinitis due to pollen . Comparison: None. Technique: Thin slice Scans CT of the paranasal sinuses was performed with coronal and sagittal refor matted images. No IV contrast. . Automated exposure control and iterative reconstruction technique w ere employed. The dose-length product was 302.19 mGy-cm. Findings: NASAL SEPTUM: Moderate left nasal septal deviation. OSTEOMEATAL UNITS: Bilaterally patent. NASAL TURBINATES AND NASOPHARYNX: Normal. PARANASAL SINUSES: Left sphenoid sinus. Otherwise, Well aerated. VISUALIZED MASTOIDS: Normal as visualized. BONES: Normal. SUPERFICIAL SOFT TISSUES/VISUALIZED BRAIN PARENCHYMA: Normal. IMPRESSION: Left nasal septal deviation. Left sphenoid sinus disease. Reviewed, dictated and finalized at location A.
--- OUTSIDE RECORDS SUMMARY | 2024-09-03 14:07 | XMS_ITS | Clinical Summary ---
Author Organization [facility] Address [address] [place] [address] Care Team Providers Care Yarn Carrier Name Role Phone Unavailable Primary Care Provider Unavailabl e Social History Tobacco Use Types Packs/Day Years Used Date Smoking Tobacco: Never Assessed Sex and Gender Information Value Date Recorded Sex Assigned at Not on file Legal Sex Male 4:30 PM TRUST AND ESTATES ATTORNEY Gender Identity Not on file Sexual Orientation [...]
== END 2024-09-03 14:05 | disposition home or self-care (01) ==
LOC: ANHIMG 14:05
PROVIDERS: PCP Family Medicine; Visit Provider Otolaryngology Otolaryngology/Facial Plastic Surgery
DX: J30.1 Allergic rhinitis due to pollen (principal); J34.2 Deviated nasal septum; J32.3 Chronic sphenoidal sinusitis; J30.0 Vasomotor rhinitis
CPT/HCPCS: 70486

== ENCOUNTER 2025-01-21 13:08 | Outpatient (CLI) | payer MEDICARE, BC, SELFPAY ==
--- NOTE | ~2025-01-21 | XR_ITS ---
EXAMINATION: XR barium swallow DATE: 01/21/2025 14:00 INDICATION: Gastroesophageal reflux disease without esophagitis TECHNIQUE: The patient drank thick barium, gas-producing crystals, and thin barium. Fluoroscopic spot radiographs of the hypopharynx and esophagus were obtained. A total of 1343 fluoroscopic images were recorded. Fluoroscopy exposure time was 2.1 minutes. Total DAP was 20.585 Gycm^2. COMPARISON: None. FINDINGS: The pharynx is symmetric and without evidence of mass lesion or mucosal irregularity. The esophagus is normal without mass or stricture. Esophageal motility is normal. There is no hiatal hernia. There was no gastroesophageal reflux with provocative maneuvers. Median sternotomy wires, ostial markers and mediastinal surgical clips consistent with prior coronary artery bypass grafting. IMPRESSION: 1. Normal barium swallow study. No hiatal hernia or evident gas esophageal reflux with provocative maneuvers. Reviewed, dictated and finalized at location A. IMPRESSION: 1. Normal barium swallow study. No hiatal hernia or evident gas esophageal refl ux with provocative maneuvers.
--- OUTSIDE RECORDS SUMMARY | 2025-01-21 13:17 | XMS_ITS | Encounter Summary ---
Author Organization [facility] [place] [facility] Address [address] [place] [address] Phone Care Team Providers Care Mortar Carrier Name Role Phone Manoj Humphrey MD Unavailable George Tolliver MD Unavailable [phone] Nciole Solorio MD Primary Care Provider + Encounter Details Date Type Department Care Team (Late st Contact Info) Description 11/24/2024 Results Follow-Up [facility] Medicine Cardiology [address] [facility] Medical Office Building [address] [place] [address] Didi Mcintyre NP [address] [place] [address] SCAN - LABS Social History Tobacco Use Types Packs/Day Years Used Date Smoking Tobacco: Former Cigarettes 2 25 1 975 - 05/19/2019 Smokeless Tobacco: Never Alcohol Use Standard Drinks/Week Comments Yes 0 (1 standard drink = 0.6 oz pur e alcohol) 2 or 3 beers a week Personal Safety Answer Date Recorded Getting School Help Needed Denies 05/04 Sex and Gender Information Value Date Recorded Sex Assigned at Not on file Legal Sex Male 11:51 AM TRANSCRIPTER Gender Identity Male 09/03/2019 10:45 AM CDT Sexual Orientation Straight 10/01/2018 11 :21 AM CDT documented as of this encounter Plan of Treatment Not on file documented as of this encounter Visit Diagnoses Not on filedocumented in this encounter Care Teams Mortar Carrier Relationship Specialty Start Date End Date Nicole Solorio MD [address] [facility] [address] [place] [address] PCP - General Family Medicine 07/28/24 Manoj Humphrey MD Surgeon Vascular Surgery 07/09/22 George Tolliver MD [address] [facility] [address] [place] [address] Surgeon Orthopedic Surgery 07/09/22 documented as of this encounter
--- OUTSIDE RECORDS SUMMARY | 2025-01-21 13:17 | XMS_ITS | Encounter Summary ---
Author Organization [facility] [place] [facility] Address [address] [place] [address] Phone Care Team Providers Care Car Ferrier Name Role Phone Manoj Humphrey MD Unavailable Kavin Thomas MD Primary Care Provider [phone] Manoj Humphrey MD Unavailable Osmin Wheeler MD Unavailable [phone] George Tolliver MD Unavailable [phone] Nicole Solorio MD Primary Care Provider + Encounter Details Date Type Department Care Team (Late st Contact Info) Description 06/05/2022 Telephone [facility] Medicine Cardiology [address] [facility] Advanced Medicine 8th [place] [address] [place] [phone] Jos eMiguel Curry MD [address] [place] [address] Social History Tobacco Use Types Packs/Day Years Used Date Smoking Tobacco: Former Cigarettes 2 25 1 975 - 2000 Smokeless Tobacco: Never Alcohol Use Standard Drinks/Week Comments Yes 0 (1 standard drink = 0.6 oz pur e alcohol) 2 or 3 beers a week Sex and Gender Information Value Date Recorded Sex Assigned at Not on file Legal Sex Male 11:51 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 Gender Identity Male 09/03/2019 10:45 AM CDT Sexual Orientation Straight 10/01/2018 11 :21 AM CDT documented as of this encounter Plan of Treatment Not on file documented as of this encounter Visit Diagnoses Not on filedocumented in this encounter Additional Health Concerns Infection Onset Date Last Indicated Resolved Time COVID: Suspected 05/04/2023 05/04/2023 05/04/2023 2:33 PM DRYER OPERATOR COVID: Suspected 05/04/2023 05/04/2023 05/04/2023 9:17 PM DRYER OPERATOR Influenza, adult 05/04/2023 05/04/2023 05/11/2023 3:07 AM DRYER OPERATOR documented as of this encounter Care Teams Car Ferrier Relationship Specialty Start Date End Date Kavin Thomas MD PCP - General Family Medicine 05/27/22 07/27/24 Nicole Solorio MD [address] [facility] [address] [address] PCP - General Family Medicine 07/28/24 Manoj Humphrey MD Consulting Physician Vascular Surgery 07/05/20 07/08/22 Manoj Humphrey MD Surgeon Vascular Surgery 07/09/22 Osmin Wheeler MD [address] [facility] [address] [address] Surgeon Orthopedic Surgery 07/09/22 07/09/22 George Tolliver MD [address] [address] Surgeon Orthopedic Surgery 07/09/22 documented as of this encounter
--- OUTSIDE RECORDS SUMMARY | 2025-01-21 13:17 | XMS_ITS | Clinical Summary ---
Author Organization [facility] Address [address] [place] [address] Care Team Providers Care Perfect Bind Machine Operator Name Role Phone Manoj Humphrey MD Unavailable George Tolliver MD Unavailable [phone] Nicole Solorio MD Primary Care Provider + Allergies Active Allergy Reactions Criticality Noted Date Comments Adhesive Tape-Silicones Rash Medium Iodinated Contrast Media Hives Medium 08/07/2015 Iodine Rash High 03/03/2017 Latex Rash Medium Medications omega 2-nxz-amc-fish oil (FISH OIL) 100-160-1,000 mg capsule 0 0 01/20/2015 Active cyanocobalamin (vitamin B-12) 1,000 mcg tablet 1,000 mcg. 0 0 01/20/2015 Active aspirin (ASPIR-81) 81 mg tablet 81 mg. 0 0 01/20/2015 Active levothyroxine (SYNTHROID, LEVOTHROID) 75 mcg tablet 75 mcg. 0 0 01/20/2015 Active cholecalciferol (VITAMIN D3) 1,000 unit capsule 0 0 01/20/2015 Active magnesium oxide (MAG-OX) 415 mg (250 mg elemental) tablet Take 250 mg by mouth 2 (two) times a day 09/25/2017 Active multivitamin tabletIndication s:Vitamin Deficiency Prevention,1/2 tab bid Take 1 tablet by mouth every morning 08/31/2008 Active ascorbic acid (VITAMIN C) 1,000 mg tablet Take 1 tablet (1,000 mg total) by mouth 2 (two) times a day Active acetaminophen (TYLENOL) 500 mg tablet Take 1 tablet (500 mg total) by mouth every 6 (six) hours as needed for pain Active nitroglycerin (NITROSTAT) 0.[address] 1 tablet (0.4 mg total) under the tongue every 5 (five) minutes as needed for chest pain 25 tablet 4 05/03/2024 Active dapagliflozin propanediol (FARXIGA) 10 mg tabletIndication s:Heart Failure Take 1 tablet (10 mg total) by mouth daily 90 tablet 3 05/20/2024 05/20/19 26 Active sacubitriL-valsa rtan (ENTRESTO) 49-51 mg tabletIndication s:chronic heart failure Take 1 tablet by mouth 2 (two) times a day 60 tablet 11 06/11/2024 06/11/19 26 Active atorvastatin (LIPITOR) 20 mg tablet TAKE 1 TABLET(20 MG) BY MOUTH DAILY 90 tablet 3 08/16/2024 Active ipratropium (ATROVENT) 21 mcg (0.03 %) nasal spray INSTILL 2 SPRAYS IN EACH NOSTRIL 1-3 TIMES DAILY. AIM BACK/UP/OUT 09/08/2024 Active isosorbide mononitrate ER (IMDUR) 30 mg 24 hr tablet Take 1 tablet (30 mg total) by mouth daily 90 tablet 3 11/22/2024 Active metoprolol XL (TOPROL-XL) 25 mg extended release tablet Take 1 tablet (25 mg total) by mouth daily 90 tablet 3 11/22/2024 Active Active Problems Problem Noted Date Diagnosed Date Hypothyroidism 07/18/2020 Assessment & Plan (07/18/2020 12:18 PM MEDICINE TECHNOLOGIST): -Continue home levothyroxine Allergy to iodinated contrast 07/18/2020 Assessment & Plan (07/18/2020 1:39 PM MEDICINE TECHNOLOGIST): -premedicated with benadryl and prednisone -CTM closely for hives, rash, hypotension, SOB Hypertension 07/04/2020 Assessment & Plan (07/18/2020 12:17 PM MEDICINE TECHNOLOGIST): -Resume home HTN meds as appropriate after surgery Assessment & Plan (07/04/2020 2:22 PM MEDICINE TECHNOLOGIST): - OU - On imdur, norvasc and atenolol at home, resume when able. Abdominal aortic aneurysm (AAA) without rupture 06/23/2020 Assessment & Plan (07/18/2020 6:15 PM MEDICINE TECHNOLOGIST): - 7.8cm Infrarenal AAA. 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 Class 1 obesity due to exces s calories with serious comorbidity and body mass index (BMI) of 30.0 to 30.9 in adult 02/02/2015 Overview (08/23/2016): Obesity Chronic coronary artery [...] Edema 12/31/2010 Pain of lower extremity 12/31/2010 Severe obstructive sleep apnea 10/01/2010 Overview (08/29/2017): Description: Obstructive Sleep Apnea [...] Encounters Date Type Department Care Team Description 11/24/2024 Results Follow-Up [facility] Medicine Cardiology [address] [place] [address] Medical Office [address] [place] [address] Didi Mcintyre NP SCAN - LABS 11/22/2024 11:00 AM CDT Office Visit [facility] Medicine Cardiology [address] [place] [address] [address] [place] [address] Didi Mcintyre NP HFrEF (heart failure with reduced ejection fraction) (HCC) (Primary Dx); 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 from Last 3 Months Surgical History Surgery [...] Oleary Brother 2 Pilo Oleary Father Pilo Harvey Mother Viviane Oleary Social History Tobacco Use [...] on file Legal Sex Male 11:51 AM MEDICINE TECHNOLOGIST Gender Identity Male 09/03/2019 10:45 AM CDT Sexual Orientation Straight 10/01/2018 11 :21 AM CDT Obstetrics History Last Filed Vital Signs Vital Sign Reading Time Taken Comments Blood Pressure 120/58 11/22/2024 10:22 AM CDT Pulse 59 11/22/2024 10:22 AM CDT Temperature 36.4 C (97.5 F) 09/20/2024 10:24 AM CDT Respiratory Rate 12 09/20/2024 10:24 AM CDT Oxygen Saturation 95% 11/22/2024 10:22 AM CDT Inhaled Oxygen Concentration - - Weight 105.2 kg (232 lb) 11/22/2024 10:22 AM CDT Height 182.9 cm (6') 11/22/2024 10:22 AM CDT Body Mass Index 31.46 11/22/2024 10:22 AM CDT Plan of Treatment Health Maintenance Due Date Last Done Comments Depression Screening 1945 Hepatitis B Screening 1962 Pneumococcal vaccine 65+ (1 of 2 - PCV) 10/13/1963 Lung Cancer Screening 1994 Zoster Vaccine (1 of 2) 1994 Well Visit 65+ 2009 Fall Risk Assessment 07/19/2021 07/19/2020 DTaP/Tdap/Td Vaccine (2 - Td or Tdap) 07/09/2024 07/09/2014 Influenza Vaccine (#1) 2025 , 01/11/2019, 02/02/2018 Abdominal Aortic Aneurysm (A AA) Screen Completed 07/28/2024, 07/28/2024, 07/28/2024, Additional history exists Medical Devices Implanted Type Area Ssrs Developer Device Identifier Shelf Expiration Date Model / Serial / Lot Daig [employer]ia[employer] [id number] Angio-Seal Evolution 6fr .035in Guidewire Bypass Tube Suture - [id number] Implanted:Qty: 1 on 07/29/2019 by Gus Austin MD at [facility] Collagen [employer] 02/16/2020 [id number] / / [id number] [employer] [id number] Lansing Excluder C3 28.5mm 14.5mm 24-26mm 12-13.5mm 18cm Monroy Film - [id number] - [id number] Implanted:Qty: 1 on 07/18/2020 by Manoj Humphrey MD at [facility] Graft N/A: Aorta [employer] [id number] 03/18/2023 [id number] / [id number] / 0 [employer] [id number] Excluder 18mm 14.5-16.5mm 13.5cm Stent Abrasion Resistant - [id number] - [id number] Implanted:Qty: 1 on 07/18/2020 by Manoj Humphrey MD at [facility] Graft Right: Iliac [employer] [id number] 02/21/2023 [id number] / [id number] / 0 Vicente Soapets Sofia [id number] Vascu-Guard 8x.8cm Peripheral Patch Vascular Bovine Pericardium - S00 - [id number] Implanted:Qty: 1 on 07/04/2020 by Manoj Humphrey MD at [facility] Other - see comments Left: Neck Vicente [employer] Sofia 01/25/2025 [id number] / 00 / [id number] Description:Bovine pericardi al patch [employer] 77419-44 Perclose 6fr Suture Mediate Knot Push Vascular Device Closure - S0 - [id number] Implanted:Qty: 1 on 07/18/2020 by Manoj Humphrey MD at [facility] Other - see comments Right: Groin [employer] [id number] 04/17/2022 52843-11 / 0 / [id number] Description:Suture [employer] 45125-93 Perclose 6fr Suture Mediate Knot Push Vascular Device Closure - S0 - [id number] Implanted:Qty: 1 on 07/18/2020 by Maonj Humphrey MD at [facility] Other - see comments Right: Groin [employer] [id number] 04/17/2022 53318-88 / 0 / [id number] Description:Suture [employer] 93921-70 Perclose 6fr Suture Mediate Knot Push Vascular Device Closure - S0 - [id number] Implanted:Qty: 1 on 07/18/2020 by Manoj Humphrey MD at [facility] Other - see comments Right: Groin [employer] [id number] 04/17/2022 08685-35 / 0 / [id number] Description:Suture [employer] 26375-89 Perclose 6fr Suture Mediate Knot Push Vascular Device Closure - S0 - [id number] Implanted:Qty: 1 on 07/18/2020 by Manoj Humphrey MD at [facility] Other - see comments Right: Groin [employer] [id number] 04/17/2022 05979-01 / 0 [id number] Description:Suture [employer] 01448-53 Perclose 6fr Suture Mediate Knot Push Vascular Device Closure - S0 - [id number] Implanted:Qty: 1 on 07/18/2020 by Manoj Humphrey MD at [facility] Other - see comments Right: Groin [employer] [id number] 04/17/2022 98036-10 / 0 [id number] Procedures Procedure Name Priority Date/Time Associated Diagnosis Comments CTA ABDOMEN PELVIS W WO CONTRAST Schedule Routine, Read Routine (OP Routine) 07/28/2023 3:13 PM CDT Encounter for surgical aftercare following surgery on the circulatory system from Last 3 Months or Most Recently Relevant to Health Maintenance Results * CTA Abdomen Pelvis (07/28/2023 3:13 PM [...] an infrarenal abdominal aortic aneurysm with an yrezp-bh-jkvtf stent graft in place. The proximal attachment [...] is 62 mm AP x 72 mm pvqzz-yf-piju. This is stable since the prior exam. The maximum diameter of the graft is 28 mm AP x 26 mm wbebt-nd-vlvh. This is stable since the prior exam. [...] an infrarenal abdominal aortic aneurysm with an cckow-rf-uiaeu stent graft in place. The proximal attachment [...] is 62 mm AP x 72 mm hnidr-jk-ufzk. This is stable since the prior exam. The maximum diameter of the graft is 28 mm AP x 26 mm rjzsy-bo-srfv. This is stable since the prior exam. [...] it. Electronically signed by: Rj Ta M.D. us Manoj Humphrey MD IMG CT PROCEDURES Final R esult from Last 3 Months or Most Recently Relevant to Health Maintenance Insurance MEDICARE [facility] Address: [address] [address] [facility] Address: [address] [place] [address] MEDICARE [facility] [employer] Member Subscriber Plan / Payer (Ef fective 2015-Present) Name:Oscar Oleary Robert Relation to Subscriber:Spouse Name:Jocy Oleary Date of :1946 (Home) Address: [address] [place] [address] Payer ID:[id number] (NAIC) Group ID:[id number] Type:fake company 2.0 Address: [address] [place] [address] MEDICARE [facility] Member Subscriber Plan / Payer (Ef fective 2015-Present) Name:Tim Oscar R Relation to Subscriber:Spouse Name:LINH OLEARYRA Apple Date of :1946 (Home) Address: [address] [place] [address] Payer ID:[id number] (NAIC) Group ID:[id number] Type:fake company 2.0 Address: [address] [place] [address] MEDICARE [facility] Address: [address] [address] [place] [address] [facility] Address: [address] [place] [address] Advance Directives For more information, please contact: [phone] * Full Code (Latest Code Status on [...] Oleary Spouse Health Care Agent Care Teams Perfect Bind Machine Operator Relationship Specialty Start Date End Date Nicole Solorio MD [facility] [address] [address] PCP - General Family Medicine 07/28/24 Manoj Humphrey MD Surgeon Vascular Surgery 07/09/22 George Tolliver MD [address] [address] Surgeon Orthopedic Surgery 07/09/22
--- OUTSIDE RECORDS SUMMARY | 2025-01-21 13:17 | XMS_ITS | Encounter Summary ---
Author Organization [facility] Address [address] [place] [address] Phone Care Team Providers Care Vice President Consulting Services Name Role Phone Manoj Humphrey MD Unavailable George Tolliver MD Unavailable [phone] Nicole Solorio MD Primary Care Provider + Encounter Details Date Type Department Care Team (Latest Contact Info) Description 08/16/2024 Orders Only [facility] Didi Mcintyre, ED [address] [place] [address] Social History Tobacco Use Types Packs/Day Years [...] on file Legal Sex Male 11:51 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 Gender Identity Male 09/03/2019 10:45 AM CDT Sexual Orientation Straight 10/01/2018 11 :21 AM CDT documented as of this encounter Plan of Treatment Not on file documented as of this encounter Procedures Procedure Name Priority Date/Time Associated Diagnosis Comments SCAN - LABS 08/16/2024 documented in this encounter Results * SCAN - LABS (08/16/2024) Didi Mcintyre NP Final Result documented in this encounter Visit Diagnoses Not on filedocumented in this encounter Care Teams Vice President Consulting Services Relationship Specialty Start Date End Date Nicole Solorio MD [facility] [address] [place] [address] PCP - General Family Medicine 07/28/24 Manoj Humphrey MD Surgeon Vascular Surgery 07/09/22 George Tolliver MD [address] [facility] [address] [place] [address] Surgeon Orthopedic Surgery 07/09/22 documented as of this encounter
--- OUTSIDE RECORDS SUMMARY | 2025-01-21 13:17 | XMS_ITS | Clinical Summary ---
Author Organization [facility] Address [address] [place] [address] Care Team Providers Care Allocation Analyst Name Role Phone Unavailable Primary Care Provider Unavailabl e Social History Tobacco Use Types Packs/Day Years Used Date Smoking Tobacco: Never Assessed Sex and Gender Information Value Date Recorded Sex Assigned at Not on file Legal Sex Male 4:30 PM COMMUNITY HEALTH WORKER Gender Identity Not on file Sexual Orientation Not on file Plan of Treatment Health Maintenance Due Date Last Done Comments Hepatitis C Virus (HCV) Screening 1945 Pneumococcal Immunization (5 0+ years) (1 of 1 - PCV) 1994 Zoster Immunization (1 of 2) 1994 Respiratory Syncytial Virus (RSV) Immunization (Adult) (1 - 1-dose 75+ series) 10/13/2019 SARS-COV-2 Immunization (1 - 2023- season) 2024 Influenza Immunization (#1) 2025 08/10/2018, 02/02/2018 DTaP/Tdap/Td Immunization Discontinued 07/09/2014 TdaP Immunization Completed 07/09/2014 Hepatitis B Immunization Aged Out No longer eligible based on patient's age to complete this topic Human Papillomavirus (HPV) Immunization Aged Out No longer eligible based on patient's age to complete this topic Meningococcal Immunization (ACWY) Aged Out No longer eligible based on patient's age to complete this topic Rotavirus Immunization Aged Out No lo nger eligible based on patient's age to complete this topic
--- OUTSIDE RECORDS SUMMARY | 2025-01-21 13:17 | XMS_ITS | Encounter Summary ---
Author Organization [facility] Address [address] [place] [address] Phone Care Team Providers Care Fruit And Vegetable Packer Name Role Phone Esther Fleming MD Primary Care Provider [phone] Manoj Humphrey MD Unavailable [phone] Kavin Thomas MD Primary Care Provider [phone] Manoj Humphrey MD Unavailable Osmin Wheeler MD Unavailable [phone] George Tolliver MD Unavailable [phone] Nicole Solorio MD Primary Care Provider + [...] on file Legal Sex Male 11:51 AM VISUAL BASIC DEVELOPER Gender Identity Male 09/03/2019 10:45 AM CDT [...] COVID: Suspected 05/04/2023 05/04/2023 05/04/2023 2:33 PM VISUAL BASIC DEVELOPER COVID: Suspected 05/04/2023 05/04/2023 05/04/2023 9:17 PM VISUAL BASIC DEVELOPER Influenza, adult 05/04/2023 05/04/2023 05/11/2023 3:07 AM VISUAL BASIC DEVELOPER documented as of this encounter Care Teams Fruit And Vegetable Packer Relationship Specialty Start Date End Date Esther Fleming MD [address] [place] [address] PCP - General 09/26/16 05/26/22 Kavin Thomas MD [address] [place] [address] PCP - General Family Medicine 05/27/22 07/27/24 Nicole Solorio MD [address] [facility] [place] [address] PCP - General Family Medicine 07/28/24 Manoj Humphrey MD [address] [place] [address] Consulting Physician Vascular Surgery 07/05/20 07/08/22 Manoj Humphrey MD [address] [place] [address] Surgeon Vascular Surgery 07/09/22 [place] [address] [place] [address] [place] [address] Surgeon Orthopedic Surgery 07/09/22 07/09/22 George Tolliver MD [address] [place] [address] Surgeon Orthopedic Surgery 07/09/22 documented as of this encounter
== END 2025-01-21 13:09 | disposition home or self-care (01) ==
PROVIDERS: PCP Family Medicine; Visit Provider Otolaryngology Otolaryngology/Facial Plastic Surgery
DX: K21.9 Gastro-esophageal reflux disease without esophagitis (principal)
CPT/HCPCS: 74220